=== PATIENT | male | born 1965 | race Caucasian/White ===

== ENCOUNTER 2018-03-27 02:13 | Inpatient (IN) ==
[2018-03-27] MEDS ORDERED: Heparin 10,000 UNITS/10 ML Vial (for IV use) IV.PUSH STA (02:23)
--- NOTE | 2018-03-27 02:23 | ED ---
HPI General Chief complaint: STEMI Alert Stated complaint: Cardiac complaint Time Seen by Provider: 03/27/18 02:21 Source: patient Mode of arrival: ambulatory Limitations: no limitations History of Present Illness HPI narrative: 52yo with PMH of HTN presents to the ED with c/o left sided chest pain during sexual intercourse 2 hours ago. Pain is sharp, constant and associated with nausea, sob and diaphoresis. Pt took 2 aspirin today. Used to see Dr. Real but has not had a compliance spec in years. Related Data Allergies Allergy/AdvReac Type Severity Reaction Status Date / Time hydrocodone Allergy Severe Agitation Verified 03/27/18 02:23 codeine Allergy Agitation Verified 03/27/18 02:23 Review of Systems ROS: all other systems reviewed are negative [facility] Medical History Medical History Afib (Acute) Atrial fibrillation with RVR (Acute) History of cardioversion (Acute) Hyperlipidemia (Acute) Hypertension (Acute) Surgical History Surgical History History of appendectomy (Acute) Hx of tonsillectomy (Acute) Family History Family History Other Family history of diabetes mellitus Family history of hypertension Social History Social History Substance History: No History of Abuse Second Hand Smoke Exposure: Yes Smoking Status: Never smoker How Often Do You Have a Drink Containing Alcohol: Monthly or less Hx Recent Travel: No Recent Travel in [facility] within the Last 8 Weeks: No Recent Out of Country Travel within the Last 8 Weeks: No Exam Narrative Exam Narrative: GENERAL: 52yo M in distress. SKIN: Diaphoretic. HEAD: Atraumatic. Normocephalic. EYES: Pupils equal and round. No scleral icterus. No injection or drainage. ENT: No nasal bleeding or discharge. Mucous membranes pink and moist. NECK: Trachea midline. No JVD. CARDIOVASCULAR: Regular rate and rhythm. No murmur appreciated. RESPIRATORY: No accessory muscle use. Clear to auscultation. Breath sounds equal bilaterally. GASTROINTESTINAL: Abdomen soft, non-tender, nondistended. MUSCULOSKELETAL: No obvious deformities. No clubbing. No cyanosis. No edema. NEUROLOGICAL: Awake and alert. No obvious cranial nerve deficits. Motor grossly within normal limits. Normal speech. PSYCHIATRIC: Appropriate mood and affect; insight and judgment normal. Course Initial Documented Vital Signs Temperature 97.6 F 03/27/18 02:15 Pulse Rate 63 03/27/18 02:15 Respiratory Rate 18 03/27/18 02:15 Blood Pressure 161/91 H 03/27/18 02:15 Pulse Oximetry 100 03/27/18 02:15 Last Documented Vital Signs Temperature 98.3 F 03/27/18 23:00 Pulse Rate 71 03/27/18 23:00 Respiratory Rate 22 03/28/18 00:00 Blood Pressure 119/89 03/27/18 23:00 Pulse Oximetry 96 03/27/18 23:00 Critical Care Time Critical Care Time: Yes Total Critical Care Time: 35 Attestation: Aggregate critical care time was 35 minutes. Time to perform other separately billable procedures was not included in the critical care time. My time did not include minutes spent treating any other patients simultaneously or on activities that did not directly contribute to the patient's treatment. The services I provided to this patient were to treat and/or prevent clinically significant deterioration that could result in: cardiovascular collapse or . I provided critical care services requiring my management, as noted below: Chart data review, documentation time, medication orders and management, vital sign assessments/reviewing monitor data, ordering and reviewing lab tests, ordering and interpreting/reviewing x-rays and diagnostic studies, care of the patient and discussion of the patient with the admitting physicians. Medical Decision Making MDM Narrative Medical decision making narrative: 52yo M with STEMI and STEMI alert was activated immediately. I discussed case with compliance spec Dr. Ash and he is on his way in. Pt given another 162mg of aspirin and heparin bolus. Pt said he is allergic to hydrocodone and codeine but can take dilaudid so given 1mg of dilaudid. I-stat showed mild elevated of creatinine at 1.9. Pt transferred to cardiac labels molder for emergent cardiac catheterization. Medical Screen Exam Complete: Yes Emergency Medical Condition: Yes Differential Diagnosis Differential Diagnosis: ACS Lab Data Result diagrams: 03/27/18 02:25 03/27/18 21:30 Lab Results 03/27/18 03/27/18 03/27/18 Range/Units 02:22 02:25 02:25 WBC 20.4 H (4.0-11.0) th/mm3 RBC 5.48 (4.50-5.90) mil/mm3 Hgb 16.4 (13.0-17.0) gm/dL POC Hgb (Calc) (13.0-17.0) g/dL Hct 49.0 (39.0-51.0) % POC Hct (39-51.0) % MCV 89.3 (80.0-100.0) fL MCH 30.0 (27.0-34.0) pg MCHC 33.6 (32.0-36.0) % RDW 14.2 (11.6-17.2) % Plt Count 312 (150-450) th/mm3 MPV 8.6 (7.0-11.0) fL Prelim Diff (Auto) Slide review pending Neut % (Auto) 73.1 H (16.0-70.0) % Lymph % (Auto) 19.0 (9.0-44.0) % Linn % (Auto) 5.5 (0.0-8.0) % Eos % (Auto) 1.7 (0.0-4.0) % Baso % (Auto) 0.7 (0.0-2.0) % Neut # (Auto) 14.9 H (1.8-7.7) th/mm3 Lymph # (Auto) 3.9 (1.0-4.8) th/mm3 Linn # (Auto) 1.1 H (0.0-0.9) th/mm3 Eos # (Auto) 0.3 (0.0-0.4) th/mm3 Baso # (Auto) 0.1 (0.0-0.2) th/mm3 WBC Differential Manual diff final Seg Neuts % (Manual) 73 H (16-70) % Band Neuts % (Manual) 2 (0-6) % Lymphocytes % (Manual) 16 (9-44) % Monocytes % (Manual) 6 (0-8) % Basophils % (Manual) 1 (0-2) % Myelocytes % (Man) 2 H (0-0) % Abs Neuts (Manual) 15.7 H (1.8-7.7) th/mm3 Differential Comment . Platelet Estimate Normal (Normal) Platelet Morphology Normal (Normal) RBC Morphology Normal (Normal) PT 10.5 (9.8-11.6) sec INR 1.0 Ratio APTT 21.3 L (24.3-30.1) sec POC Sodium (137-144) mmol/L Sodium (136-145) meq/L POC Potassium (3.6-5.0) mmol/L Potassium (3.5-5.1) meq/L POC Chloride (102-111) mmol/L Chloride (98-107) meq/L Carbon Dioxide (21.0-32.0) meq/L Anion Gap (5-15) meq/L POC BUN (5-21) mg/dL BUN (7-18) mg/dL Creatinine (0.60-1.30) mg/dL POC Creatinine (0.6-1.3) mg/dL Estimated GFR (>89) mL/min POC Glucose 220 H (68-110) mg/dl Random Glucose (74-106) mg/dL Hemoglobin A1c (4.3-6.0) % Calcium (8.5-10.1) mg/dL Magnesium (1.5-2.5) mg/dL Total Creatine Kinase (39-308) U/L CK-MB (CK-2) (0.5-3.6) ng/mL CK-MB (CK-2) % (0.0-4.0) % Troponin I (0.02-0.05) ng/mL B-Natriuretic Peptide (0-100) pg/mL TSH (0.358-3.740) uIU/mL Free T4 (0.76-1.46) ng/dL 03/27/18 03/27/18 03/27/18 Range/Units 02:25 02:25 02:25 WBC (4.0-11.0) th/mm3 RBC (4.50-5.90) mil/mm3 Hgb (13.0-17.0) gm/dL POC Hgb (Calc) 16.7 (13.0-17.0) g/dL Hct (39.0-51.0) % POC Hct 49.0 (39-51.0) % MCV (80.0-100.0) fL MCH (27.0-34.0) pg MCHC (32.0-36.0) % RDW (11.6-17.2) % Plt Count (150-450) th/mm3 MPV (7.0-11.0) fL Prelim Diff (Auto) Neut % (Auto) (16.0-70.0) % Lymph % (Auto) (9.0-44.0) % Linn % (Auto) (0.0-8.0) % Eos % (Auto) (0.0-4.0) % Baso % (Auto) (0.0-2.0) % Neut # (Auto) (1.8-7.7) th/mm3 Lymph # (Auto) (1.0-4.8) th/mm3 Linn # (Auto) (0.0-0.9) th/mm3 Eos # (Auto) (0.0-0.4) th/mm3 Baso # (Auto) (0.0-0.2) th/mm3 WBC Differential Seg Neuts % (Manual) (16-70) % Band Neuts % (Manual) (0-6) % Lymphocytes % (Manual) (9-44) % Monocytes % (Manual) (0-8) % Basophils % (Manual) (0-2) % Myelocytes % (Man) (0-0) % Abs Neuts (Manual) (1.8-7.7) th/mm3 Differential Comment Platelet Estimate (Normal) Platelet Morphology (Normal) RBC Morphology (Normal) PT (9.8-11.6) sec INR Ratio APTT (24.3-30.1) sec POC Sodium 141 (137-144) mmol/L Sodium (136-145) meq/L POC Potassium 3.2 L (3.6-5.0) mmol/L Potassium (3.5-5.1) meq/L POC Chloride 103 (102-111) mmol/L Chloride (98-107) meq/L Carbon Dioxide (21.0-32.0) meq/L Anion Gap (5-15) meq/L POC BUN 24 H (5-21) mg/dL BUN (7-18) mg/dL Creatinine (0.60-1.30) mg/dL POC Creatinine 1.9 H (0.6-1.3) mg/dL Estimated GFR (>89) mL/min POC Glucose 256 H (68-110) mg/dl Random Glucose (74-106) mg/dL Hemoglobin A1c (4.3-6.0) % Calcium 8.4 L (8.5-10.1) mg/dL Magnesium 2.1 (1.5-2.5) mg/dL Total Creatine Kinase 151 (39-308) U/L CK-MB (CK-2) 2.6 (0.5-3.6) ng/mL CK-MB (CK-2) % (0.0-4.0) % Troponin I 0.05 (0.02-0.05) ng/mL B-Natriuretic Peptide 52 (0-100) pg/mL TSH (0.358-3.740) uIU/mL Free T4 (0.76-1.46) ng/dL 03/27/18 03/27/18 03/27/18 Range/Units 02:25 02:25 02:25 WBC (4.0-11.0) th/mm3 RBC (4.50-5.90) mil/mm3 Hgb (13.0-17.0) gm/dL POC Hgb (Calc) (13.0-17.0) g/dL Hct (39.0-51.0) % POC Hct (39-51.0) % MCV (80.0-100.0) fL MCH (27.0-34.0) pg MCHC (32.0-36.0) % RDW (11.6-17.2) % Plt Count (150-450) th/mm3 MPV (7.0-11.0) fL Prelim Diff (Auto) Neut % (Auto) (16.0-70.0) % Lymph % (Auto) (9.0-44.0) % Linn % (Auto) (0.0-8.0) % Eos % (Auto) (0.0-4.0) % Baso % (Auto) (0.0-2.0) % Neut # (Auto) (1.8-7.7) th/mm3 Lymph # (Auto) (1.0-4.8) th/mm3 Linn # (Auto) (0.0-0.9) th/mm3 Eos # (Auto) (0.0-0.4) th/mm3 Baso # (Auto) (0.0-0.2) th/mm3 WBC Differential Seg Neuts % (Manual) (16-70) % Band Neuts % (Manual) (0-6) % Lymphocytes % (Manual) (9-44) % Monocytes % (Manual) (0-8) % Basophils % (Manual) (0-2) % Myelocytes % (Man) (0-0) % Abs Neuts (Manual) (1.8-7.7) th/mm3 Differential Comment Platelet Estimate (Normal) Platelet Morphology (Normal) RBC Morphology (Normal) PT (9.8-11.6) sec INR Ratio APTT (24.3-30.1) sec POC Sodium (137-144) mmol/L Sodium (136-145) meq/L POC Potassium (3.6-5.0) mmol/L Potassium (3.5-5.1) meq/L POC Chloride (102-111) mmol/L Chloride (98-107) meq/L Carbon Dioxide (21.0-32.0) meq/L Anion Gap (5-15) meq/L POC BUN (5-21) mg/dL BUN (7-18) mg/dL Creatinine (0.60-1.30) mg/dL POC Creatinine (0.6-1.3) mg/dL Estimated GFR (>89) mL/min POC Glucose (68-110) mg/dl Random Glucose (74-106) mg/dL Hemoglobin A1c 5.4 (4.3-6.0) % Calcium (8.5-10.1) mg/dL Magnesium (1.5-2.5) mg/dL Total Creatine Kinase (39-308) U/L CK-MB (CK-2) (0.5-3.6) ng/mL CK-MB (CK-2) % (0.0-4.0) % Troponin I (0.02-0.05) ng/mL B-Natriuretic Peptide (0-100) pg/mL TSH 12.000 H (0.358-3.740) uIU/mL Free T4 1.07 (0.76-1.46) ng/dL 03/27/18 03/27/18 03/27/18 Range/Units 19:11 21:30 21:30 WBC (4.0-11.0) th/mm3 RBC (4.50-5.90) mil/mm3 Hgb (13.0-17.0) gm/dL POC Hgb (Calc) (13.0-17.0) g/dL Hct (39.0-51.0) % POC Hct (39-51.0) % MCV (80.0-100.0) fL MCH (27.0-34.0) pg MCHC (32.0-36.0) % RDW (11.6-17.2) % Plt Count (150-450) th/mm3 MPV (7.0-11.0) fL Prelim Diff (Auto) Neut % (Auto) (16.0-70.0) % Lymph % (Auto) (9.0-44.0) % Linn % (Auto) (0.0-8.0) % Eos % (Auto) (0.0-4.0) % Baso % (Auto) (0.0-2.0) % Neut # (Auto) (1.8-7.7) th/mm3 Lymph # (Auto) (1.0-4.8) th/mm3 Linn # (Auto) (0.0-0.9) th/mm3 Eos # (Auto) (0.0-0.4) th/mm3 Baso # (Auto) (0.0-0.2) th/mm3 WBC Differential Seg Neuts % (Manual) (16-70) % Band Neuts % (Manual) (0-6) % Lymphocytes % (Manual) (9-44) % Monocytes % (Manual) (0-8) % Basophils % (Manual) (0-2) % Myelocytes % (Man) (0-0) % Abs Neuts (Manual) (1.8-7.7) th/mm3 Differential Comment Platelet Estimate (Normal) Platelet Morphology (Normal) RBC Morphology (Normal) PT (9.8-11.6) sec INR Ratio APTT (24.3-30.1) sec POC Sodium (137-144) mmol/L Sodium 141 (136-145) meq/L POC Potassium (3.6-5.0) mmol/L Potassium 4.3 (3.5-5.1) meq/L POC Chloride (102-111) mmol/L Chloride 107 (98-107) meq/L Carbon Dioxide 22.4 (21.0-32.0) meq/L Anion Gap 12 (5-15) meq/L POC BUN (5-21) mg/dL BUN 15 (7-18) mg/dL Creatinine 0.97 (0.60-1.30) mg/dL POC Creatinine (0.6-1.3) mg/dL Estimated GFR 82 L (>89) mL/min POC Glucose (68-110) mg/dl Random Glucose 115 H (74-106) mg/dL Hemoglobin A1c (4.3-6.0) % Calcium 8.1 L (8.5-10.1) mg/dL Magnesium 2.5 (1.5-2.5) mg/dL Total Creatine Kinase 1716 H (39-308) U/L CK-MB (CK-2) 198.2 H (0.5-3.6) ng/mL CK-MB (CK-2) % 11.6 H* (0.0-4.0) % Troponin I Greater than 40.00 H* (0.02-0.05) ng/mL B-Natriuretic Peptide (0-100) pg/mL TSH (0.358-3.740) uIU/mL Free T4 (0.76-1.46) ng/dL Imaging Data Radiologist's impression: Chest X-Ray 03/27/18 02:23 CONCLUSION: No acute cardiopulmonary abnormality is identified. ECG Data EKG Prior to Arrival: No Attestation: I personally reviewed and interpreted this ECG as follows: Interpretation: Marked ST elevation in II, III, aVF and V2-V6. Reciprocal changes I, aVL. STEMI alert called immediately. Discharge Plan Discharge Disposition Patient Disposition: 30 Still Patient Discharge Details Diagnosis: ST elevation (STEMI) myocardial infarction Physicians Team ED Provider: Alina Beard Primary Care Provider: Pro Canas Attending Provider: Anuj Cason Discharge Interventions Interventions: ED Discharge Assessment Last Done: 03/27/18 03:22 Vital Signs Last Done: 03/27/18 02:43 Status ED Status: Left Department Discharge Information Discharge Date/Time: 03/27/18 03:22
[2018-03-27] MEDS ORDERED: HYDROmorphone PF Inj 0.5 MG/0.5 ML Syringe IV.PUSH PRN (02:26)
[2018-03-27] MEDS ORDERED: Sod Chloride 0.9% Inj 1,000 ML IV.SIG SCH (02:30)
[2018-03-27 02:34] LABS: Baso # (Auto) 0.1 th/mm3 (0.0-0.2); Baso % (Auto) 0.7 % (0.0-2.0); Eos # (Auto) 0.3 th/mm3 (0.0-0.4); Eos % (Auto) 1.7 % (0.0-4.0); Hemoglobin 16.4 gm/dL (13.0-17.0); Lymph # (Auto) 3.9 th/mm3 (1.0-4.8); Mean Corpuscular HGB Conc 33.6 % (32.0-36.0); Mean Corpuscular Volume 89.3 fL (80.0-100.0); Mean Platelet Volume 8.6 fL (7.0-11.0); Mono # (Auto) 1.1 th/mm3 (0.0-0.9); Mono % (Auto) 5.5 % (0.0-8.0); Neut # (Auto) 14.9 th/mm3 (1.8-7.7); Neut % (Auto) 73.1 % (16.0-70.0); Platelet Count 312 th/mm3 (150-450); Red Blood Count 5.48 mil/mm3 (4.50-5.90); Red Cell Distribution Width 14.2 % (11.6-17.2); White Blood Count 20.4 th/mm3 (4.0-11.0)
[2018-03-27] MEDS ORDERED: HYDROmorphone PF Inj 2 MG/ML Vial IV.PUSH ONE (02:39)
[2018-03-27 02:45] LABS: Activated Partial Thrombo Time 21.3 sec (24.3-30.1); Prothrombin Time 10.5 sec (9.8-11.6)
--- NOTE | 2018-03-27 02:49 | XR ---
EXAM DATE: 03/27/2018 2:40 AM EDT AGE/SEX: 52 years / Male INDICATIONS: Chest pain. CLINICAL DATA: This is the patient's initial encounter. Patient reports that signs and symptoms have been present for 1 day and indicates a pain score of Nonresponsive. MEDICAL/SURGICAL HISTORY: Non-responsive. Non-responsive. COMPARISON: No prior exams available for comparison. FINDINGS: Portable AP view of the chest demonstrates a normal-sized cardiac silhouette. No effusion, consolidat ion, or pneumothorax is identified. The bones and soft tissues demonstrate no acute finding. EKG line s overlie the patient. CONCLUSION: No acute cardiopulmonary abnormality is identified. Electronically signed by: Luigi Cloud MD 03/27/2018 2:47 AM EDT
[2018-03-27] MEDS ORDERED: Heparin/NS PF Inj 1,000 ML ONE (02:54)
[2018-03-27 03:02] LABS: Creatine Kinase 151 U/L (39-308); Troponin I 0.05 ng/mL (0.02-0.05)
[2018-03-27 03:08] LABS: Lymphocytes 16 % (9-44); Monocytes 6 % (0-8); Myelocytes 2 % (0-0); Platelet Estimate Normal (Normal); Platelet Morphology Normal (Normal); RBC Morphology Normal (Normal)
[2018-03-27] MEDS ORDERED: fentaNYL Citrate Inj 100 MCG/2 ML Ampul ONE (03:10)
[2018-03-27 03:13] LABS: Calcium 8.4 mg/dL (8.5-10.1); Magnesium 2.1 mg/dL (1.5-2.5)
[2018-03-27 03:14] LABS: Creatine Kinase MB 2.6 ng/mL (0.5-3.6)
[2018-03-27] MEDS ORDERED: Atropine Inj 1 MG/10 ML Syringe ONE (03:15)
[2018-03-27] MEDS ORDERED: Heparin 10,000 UNITS/10 ML Vial (for IV use) ONE (03:18)
[2018-03-27] MEDS ORDERED: Tirofiban Inj 12,500 MCG/250 ML PLAST..BAG ONE (03:20)
[2018-03-27] MEDS: Tirofiban Inj 12,500 MCG/250 ML PLAST..BAG IV.CONT SCH ×2 (03:30→14:46)
[2018-03-27] MEDS ORDERED: Misc Info for Pharmacy OTHER STA (03:43)
[2018-03-27] MEDS ORDERED: TIROFIBAN BOLUS IV.PUSH ONE (03:43)
--- NOTE | 2018-03-27 03:57 | CATHPROC ---
[facility] HIS Report Study Information Study Number Admission Scheduled Start Study Start [id number] Mar 27 2018 2:13AM 03/27/2018 Mar 27 2018 2:51AM [place] [facility] Cardiac Catheterization Admit Source Facility Department Emergency department [facility] - [facility] Physician and Clinical Staff Initial Nci Bobby NeuropathologistFeng Gilmore,MARCE Neuropathologist Urvashi Ramey,MARCE Recorder Connie Lott,TRANSLATOR/INTERPRETER TECH2 Scrub Axel Riddle RCIS(BS) Procedures Performed Procedure Location (Site) Vessel Name Coronary Angiograms LCA Left Coronary Coronary Angiograms RCA Right Coronary Drug Eluting Inflatio RCA Prox Right Coronary LV Gram-hand inj. LV LV Ventricle Wire insertion Fem Art (right) Femoral Art Equipment Time Heel Compressor Description Size Mfg Part Number Used/Scraped [id number] 03:17 [employer] WIRE, ASAHI PROWATER 180CM 180CM Used *[id number] TRANSDUCER, TRUWAVE [id number] 03:05 MACDONALD YANEZ * Used [facility] *[id number] [id number] *[id number] *[id number] *[id number] 03:04 INAPPIN BLANKET,WARM AIR CCL * Used *[id number] 03:05 INAPPIN PACK, CCL CUSTOM * Used *[id number] 03:16 MEDTRONIC BALLOON, 2.5 X 12MM EUPHORA 12MM Used *[id number] 03:17 MEDTRONIC STENT, 3.5 15 INTEGRITY 3.5 15 Used *[id number] 03:19 [employer] MEDICAL 30 CRIS INDEFLATOR Used *[id number] 03:13 [employer] MEDICAL SHEATH, FR6.5 PRELUDE 11CM FR 6.5 038ACT Used *[id number] 03:05 [employer] MEDICAL WIRE, 3MMJ .035 180CM 180CM Used *[id number] 03:05 NAMIC MANIFOLD, 4 PORT * Used *[id number] 03:04 NYCOMED OMNIPAQUE, 350 MG, 150ML 150ML [id number] Used 03:05 NYCOMED OMNIPAQUE, 350 MG, 150ML 150ML [id number] Used Equipment Model, Serial, Lot Number and Expiration Data Description Model Number Serial Number Lot Number Expiration Date STENT, 3.5 15 INTEGRITY [id number] 01-29-2019 History: Current Medications Medication Dosage/Unit Route Frequency Last Date/Time Taken ASA History: Allergies Allergy Reaction codeine Agitation hydrocodone Agitation History: Risk Factors Family History of Hypertension Dyslipidemia Previous [place] Previous Heart Failure Premature CAD Yes No No No No Prior Valve Prior PCI Prior CABG Surgery No No No Cerebrovascular Peripheral Artery Chronic Lung On Dialysis Diabetes Disease Disease Disease No No No No No History: Arrhythmias Selection Items Atrial fibrillation Labs Hgb (g/dl) Hct (%) WBC (l/cumm) Platelets (thousands) 11.60-17.00 35.00-51.00 4.00-11.00 150.00-450.00 16.4 49 20.4 312 BUN (mg/dl) Creatinine (mg/dl) BUN:Creatinine (1:x) 7.00-18.00 0.50-1.30 10.00-20.00 24 1.9 12.6 Na (meq/l) K (meq/l) 136.00-145.00 3.50-5.10 141 3.2 Medication Medication Total Dose (Bolus/Oral) Medication Total Dosage/Unit 1% XYLOCAINE 20 mL AGGRASTAT BOLUS 25 meq/kg ATROPINE 0.6 mg EFFIENT 60 mg FENTANYL 100 mcg HEPARIN 5000 units ZOFRAN 4 mg Medications (Bolus/Oral) Medication Time Given Dosage/Unit Administered By Reason FENTANYL 03/27/2018 3:11:41 AM 50 mcg Feng Frias 50 mcg FENTANYL given in lab by Feng Frias RN via Peripheral IV. Ordered by Nic Ash. 1% XYLOCAINE 03/27/2018 3:11:42 AM 20 mL Nic Ash 20 mL 1% XYLOCAINE given in lab by Nic Ash in Right Groin via Subcutaneous. Ordered by iNc Clay. ATROPINE 03/27/2018 3:12:10 AM 0.6 mg Feng Frias 0.6 mg ATROPINE given in lab by Feng Frias, MARCE in Right Antecubital via Peripheral IV. Ordered by Nic Ash. HEPARIN 03/27/2018 3:19:05 AM 5000 units Feng Frias 5000 units HEPARIN given in lab by Feng Frias RN in Right Antecubital via Peripheral IV. Ordered by Nic Ash. ZOFRAN 03/27/2018 3:21:33 AM 4 mg Urvashi Ramey 4 mg ZOFRAN given in lab by Urvashi Ramey RN in Right Antecubital via Peripheral IV. Ordered by Nic Lisa. AGGRASTAT BOLUS 03/27/2018 3:27:20 AM 25 meq/kg Nic Ahs 25 meq/kg AGGRASTAT BOLUS given in lab by Nic Ash via Peripheral IV. Amount given = 2210 meq . Ordered by Nic Ash. FENTANYL 03/27/2018 3:28:37 AM 50 mcg Urvashi Ramey 50 mcg FENTANYL given in lab by Urvashi Ramey RN in Right Antecubital via Peripheral IV. Ordered by Nic Ash. EFFIENT 03/27/2018 3:31:04 AM 60 mg Feng Frias 60 mg EFFIENT given in lab by Feng Frias RN via Oral. Ordered by Nic Ash. Medication (Drip) Medication Time Given Dosage/Unit Concentration/Unit Diluent (ml) Solution AGGRASTAT DRIP 03/27/2018 3:29:07 AM 0.15 mcg/kg/min 12.5 mg 250 NaCl .9 0.15 mcg/kg/min AGGRASTAT DRIP given in lab by Urvashi Ramey RN in Right Antecubital via Peripher al IV. Pump/Drip Flow = 15.91 ml/hr using NaCl .9 with a concentration of 12.5 mg in 250 ml. Ordered by Nic Ash. IV Solutions 03/27/2018 3:06:18 AM 0 mL (IV) 1000 NaCl .9 Patient arrived on IV Solutions given by Nic Ash in Right Antecubital via Peripheral IV. Pum p/Drip Flow = 20 ml/hr using NaCl .9. Ordered by Nic Ash. NIPRIDE 03/27/2018 3:25:34 AM 100 mg 100 mg NIPRIDE given in lab by Nic Ash in Right Groin via Intra-coronary. Ordered by Nic Tena. NIPRIDE 03/27/2018 3:26:40 AM 100 mg 100 mg NIPRIDE given in lab by Nic Ash in Right Groin via Intra-coronary. Ordered by Nic Tena. Initial Case Assessment Cardiovascular HR NIBP 71 182/109 Edema Present Skin color Skin None Normal Warm Dry Circulatory - Right Pulses Dorsalis Pedis Femoral 3 3 Scale (0,1,2,3,4,d) Circulatory - Left Pulses Dorsalis Pedis Femoral 3 3 Scale (0,1,2,3,4,d) Neurological State Oriented to time-place- Alert Moves all extremities person Respiration - General Respiration Rate SpO2 (%) O2 (lpm) (B/min) 19 96 2 Initial Case Assessment Cardiovascular HR NIBP Chest Pain 118 137/101 2 Edema Present Skin color Skin None Normal Warm Dry Circulatory - Right Pulses Dorsalis Pedis Femoral 3 3 Scale (0,1,2,3,4,d) Circulatory - Left Pulses Dorsalis Pedis Femoral 3 3 Scale (0,1,2,3,4,d) Neurological State Oriented to time-place- Alert Moves all extremities person Respiration - General Respiration Rate SpO2 (%) (B/min) 15 97 Chronological Log Time Study Chronological Log 2:51:16 Emergency Room notified that Auto [facility]ist is ready. 2:58:20 Patient arrived via Bed. 2:58:21 Patient Name, D.O.B, / Armband Verified By R.N. 2:58:21 Consent signed by the physician and the patient and verified by the [facility] staff. 2:58:22 Pre-op and post- op instructions given; patient acknowledges understanding of instructions. 2:58:25 Patient has been NPO for Less than 6Hrs. 2:58:27 NO Skin Breakdown- 2:58:30 Disposable Defibrillator Pads Placed On Patient. 2:58:31 Qiana Prominences Protected 2:58:32 A # 20 IV was noted in the Antecubital (left). Grade = 0 2:58:33 A # 20 IV was noted in the Antecubital (right). Grade = 0 Vitals capture started with the following parameters, Patient=Adult, Interval=5 min, Initial Pr gsmdcv=171 mmHg, 3:06:12 Deflation Rate=5 mmHg, Cuff placed on Left Arm Patient arrived on IV Solutions given by Nic Ash in Right Antecubital via Peripheral I V. Pump/Drip Flow = 20 3:06:18 ml/hr using NaCl .9. Ordered by Nic Ash. 3:06:56 HR=71 bpm, JORV=355/109 mmhg, SpO2=96.0 %, Resp=19 B/min, Pain=10, Alycia=10, Thorne=2 3:07:21 History and physical on the chart or being dictated. Assessment: Initial Case, HR=71 BPM, XFBI=142/109 mmhg, Edema=None, Color=Normal, Skin = Warm, D ry Right Pulses: [place] Ped=3, Femoral=3 3:07:22 Left Pulses: [place] Ped=3, Femoral=3 Neurological: State=Alert, Ox3, MORAN Respiration: Resp=19 B/min, SpO2=96 %, O2=2 lpm 3:07:37 Reference ECG taken 3:08:17 Bilateral groins prepped with 2% chlorhexidine, and draped after a 3 minute waiting time. 3:10:01 Pressure channel 1 zeroed. Time Out. Correct patient, correct procedure, correct physician, labs, allergies, and equipment verified with laboratory machinist 3:11:37 team present. Fire risk assesment completed (see hard stop sheet for coding). Time Out Concu rred by MD and individual staff in procedure. 3:11:39 Case Start 3:11:41 50 mcg FENTANYL given in lab by Feng Frias, MARCE via Peripheral IV. Ordered by Lavonne Ash. 20 mL 1% XYLOCAINE given in lab by Nic Ash in Right Groin via Subcutaneous. Ordered by Mihir 3:11:42 Nic. 3:12:10 0.6 mg ATROPINE given in lab by Feng Frias, RN in Right Antecubital via Peripheral IV. O rdered by Nic Ash. 3:12:26 HR=81 bpm, KCYK=237/112 mmhg, SpO2=95.0 %, Resp=20 B/min, Pain=10, Alycia=10, Thorne=2 3:12:32 Access site was ~ACCESS SITE~. 3:12:34 A SHEATH, FR6.5 PRELUDE 11CM FR 6.5 was advanced into the Fem Art (right) using the Modified Seldinger technique. 3:13:53 Activated Clotting Time Drawn A JR 4.0 GUIDE CATHETER FR 6 was advanced over a wire. OMNIPAQUE, 350 MG, 150ML 150ML was used f or 3:14:04 injections. 3:15:09 The RCA was injected and visualized at various angles. OMNIPAQUE, 350 MG, 150ML 150ML used. 3:15:53 A WIRE, ASAHI PROWATER 180CM 180CM was inserted via Fem Art (right). 3:15:58 Interventional wire has crossed the lesion 3:16:52 WS=000 bpm, VXWN=869/96 mmhg, SpO2=85.0 %, Resp=20 B/min, Pain=10, Alycia=10, Thorne=2 3:17:36 ACT (Normal Range 90-180) = 197 A STENT, 3.5 15 INTEGRITY 3.5 15 was advanced through a JR 4.0 GUIDE CATHETER FR 6 over a WIRE, ASAHI 3:17:45 PROWATER 180CM 180CM. A STENT, 3.5 15 INTEGRITY 3.5 15 was deployed using a 30 CRIS INDEFLATOR at 11 atmospheres for 11 seconds in 3:18:21 the RCA Prox. 5000 units HEPARIN given in lab by Feng Frias, RN in Right Antecubital via Peripheral IV. Or dered by Mihir, 3:19:05 Nic. 3:19:36 Delivery device removed 3:19:56 Catheter was removed A JL 4.0 INFINITI CATHETER FR 4 was advanced over a wire. OMNIPAQUE, 350 MG, 150ML 150ML was use d for 3:20:28 injections. 3:21:16 The LCA was injected and visualized at various angles. OMNIPAQUE, 350 MG, 150ML 150ML used. 4 mg ZOFRAN given in lab by Urvashi Ramey, RN in Right Antecubital via Peripheral IV. Ordered by Mihir, 3:21:33 Nic. 3:21:47 HR=86 bpm, NKMQ=194/92 mmhg, SpO2=99.0 %, Resp=15 B/min, Pain=10, Alycia=10, Thorne=2 3:22:08 Catheter was removed A JR 4.0 INFINITI CATHETER FR 4 was advanced over a wire. OMNIPAQUE, 350 MG, 150ML 150ML was use d for 3:22:10 injections. 3:22:30 The LV was manually injected with ~CCS~ cc's and visualized. contrast used. Recorded Pressure: LV, HR=84, Condition=Condition 1 3:22:53 (Left Ventricle) LV 115/16/23 Recorded Pressure: LV, Ao, BH=483, Condition=Condition 1 3:23:18 (Left Ventricle) LV 127/13/24, (Aorta) Ao 125/93/108 3:24:22 Catheter was removed A JR 4.0 INFINITI CATHETER FR 4 was advanced over a wire. OMNIPAQUE, 350 MG, 150ML 150ML was use d for 3:24:24 injections. Recorded Pressure: Ao, NZ=184, Condition=Condition 1 3:25:05 (Aorta) Ao 131/92/110 3:25:34 100 mg NIPRIDE given in lab by Nic Ash in Right Groin via Intra-coronary. Ordered b y Nic Ash. 3:25:43 Catheter(s) removed without difficulty 3:26:11 Activated Clotting Time Drawn 3:26:40 100 mg NIPRIDE given in lab by Nic Ash in Right Groin via Intra-coronary. Ordered b y Nic Ash. 3:26:50 ST=163 bpm, PIVK=032/86 mmhg, SpO2=97.0 %, Resp=12 B/min, Pain=10, Alycia=10, Thorne=2 3:26:54 In the Fem Art (right) the sheath was sutured in place by Nic Ash. 3:26:59 Sterile dressing applied to site 3:27:06 Catheter was removed 3:27:10 Cine recording checked. 25 meq/kg AGGRASTAT BOLUS given in lab by Nic Ash via Peripheral IV. Amount given = 221 0 meq. Ordered 3:27:20 by Nic Ash. 3:27:30 No case complications noted. 3:27:55 Case End (Physician broke scrub) PCI QA completed: Pre-Diego - 0, Post Diego - 3, Type - ~TYPE~, Length - 12 mm, Morphology - ~MORP HOLOGY~, 3:28:01 Indications - Lesion > 50/stem, Pre-Stenosis - 100% and Post Stenosis - 0%. 3:28:03 PCI QA obtained from Crm Marketing Manager 50 mcg FENTANYL given in lab by Urvashi Ramey RN in Right Antecubital via Peripheral IV. Ord ered by Mihir, 3:28:37 Nic. 0.15 mcg/kg/min AGGRASTAT DRIP given in lab by Urvashi Ramey, MARCE in Right Antecubital via Per ipheral IV. 3:29:07 Pump/Drip Flow = 15.91 ml/hr using NaCl .9 with a concentration of 12.5 mg in 250 ml. Ordered by Arthur. Mihir 3:31:04 60 mg EFFIENT given in lab by Feng Frias, MARCE via Oral. Ordered by Nic Ash. 3:31:30 ACT (Normal Range 90-180) = 273 3:31:47 PX=418 bpm, LCBV=453/91 mmhg, SpO2=97.0 %, Resp=12 B/min, Pain=4, Alycia=10, Thorne=2 3:37:19 SS=759 bpm, GMWW=848/89 mmhg, ImA3=543.0 %, Resp=13 B/min, Pain=10, Alycia=10, Thorne=2 3:41:51 DA=575 bpm, OOAQ=263/96 mmhg, SpO2=99.0 %, Resp=15 B/min, Pain=10, Alycia=10, Thorne=2 3:46:48 RI=088 bpm, UCRM=744/101 mmhg, SpO2=97.0 %, Resp=15 B/min, Pain=10, Alycia=10, Thorne=2 3:48:25 Bedside Report will be given. 3:48:27 Implantable Device card placed in patient's chart. 3:48:30 [facility] 3:48:34 Vitals capture stopped. Assessment: Initial Case, BP=144 BPM, UTUP=381/101 mmhg, Chest Pain=2, Edema=None, Color=Normal, Skin = Warm, Dry Right Pulses: [place] Ped=3, Femoral=3 3:56:07 Left Pulses: [place] Ped=3, Femoral=3 Neurological: State=Alert, Ox3, MORAN Respiration: Resp=15 B/min, SpO2=97 % End Study - Contrast Media Used In Study Contrast Total Opened (mL) Total Used (mL) Total Wasted (mL) Omnipaque 75 75 0 End Study - Maximum Contrast Load Max Contrast Load (mL) 232.7 End Study - Radiation Exposure Fluoro Time (minutes) 3.3 End Study - Patient Disposition Complications Transferred To Interventional Outcome No Critical Care Bed successful
[2018-03-27] MEDS ORDERED: fentaNYL Citrate Inj 100 MCG/2 ML Ampul IV.PUSH ONE (04:15)
--- NOTE | 2018-03-27 04:55 | MR ---
cc: Nic Ash MD DATE: 03/27/2018 PROCEDURES PERFORMED: Left heart catheterization, left ventriculography, coronary angiography, direct percutaneous coronary intervention with bare-metal stent of the proximal right coronary artery. INDICATIONS FOR PROCEDURE: STEMI, coronary artery disease, history of atrial fibrillation. PROCEDURE IN DETAIL: The patient was brought to the cardiac catheterization laboratory, prepped and draped in the usual sterile fashion and 10 mL of 1% lidocaine was used to locally anesthetize the right common femoral artery. A 6-Micronesian sheath was placed in right common femoral artery. A 6-Micronesian JR4 guide was placed at the right coronary artery os. Imaging revealed an occluded proximal right coronary artery. The patient's initial ACT was 198 and additional 60 units/kg of heparin was given at the initiation of the procedure. ACT was 273. A 0.014 [place] guidewire was used to cross the occluded proximal right coronary artery, which resulted in reperfusion with a 95% stenosis residual of about 12 mm of length in the proximal right coronary artery. This was directly stented with a 3.5 x 15 integrity stent with one inflation, 11 atmospheres for 20 seconds. Stenosis went from 100% to 0% with PAPITO-3 flow. The right PDA had a 90% proximal stenosis. Right REMEDIOS had a 70% proximal stenosis. The vessel was of 3.5 vessel throughout its entire length. Also in the right coronary artery there was a 20% stenosis. The left main coronary artery has no significant disease angiographically. The LAD had mild 20% proximal stenosis. It is a non-transapical vessel. There is a 40%-50% stenosis after the first diagonal artery. The first diagonal artery is a medium-sized vessel, to at least 2.5 mm in diameter, with a mid to distal 60%-70% stenosis. The left circumflex vessel has no focal stenosis; however, it tapers from an approximately 2.75 mm vessel in the proximal segment down to about a 1.75-2 mm vessel within a distance of approximately 15 mm. The first obtuse marginal vessel was a 0.5 mm vessel. No significant disease angiographically. Second obtuse marginal vessel is a small vessel as well, 1 mm in diameter. No significant disease angiographically. The remainder of the AV groove of the left circumflex vessels supplies 2 small 0.25 mm posterolateral arteries, which have no significant disease angiographically. I then performed a left ventriculogram. LV pressures were 115/20-22. Ejection fraction was 55%. The posterior wall was at least moderately hypokinetic, but did have wall motion suggesting viability. Mid inferior wall is at least mild to moderately hypokinetic. Note, the patient had residual chest pain. We gave 200 mcg of intracoronary Nipride in 100 mcg increments. Chest pain at the end of procedure went from 10/10 to 2/10. CONCLUSION: 1. ST elevation myocardial infarction, culprit occluded proximal right coronary artery as detailed above. 2. Successful direct percutaneous coronary intervention with bare-metal stent of the proximal right coronary artery from 100% with PAPITO 0 flow to 0% with PAPITO 3 flow. 3. A 90%-95% proximal mid right PDA lesion. 4. A 70% proximal mid right REMEDIOS lesion as detailed above. 5. A 60-70% mid diagonal vessel stenosis as detailed above. Otherwise, moderate left anterior descending artery and circumflex disease as detailed above. 6. Preserved left ventricular systolic, ejection fraction of 55% with at least moderate hypokinesis of the posterior wall and mild to moderate hypokinesis of the mid inferior wall. 7. Recommend Effient 60 mg p.o. load then 10 mg daily for 12-15 months, aspirin 162 mg daily. The patient was bradycardic prior to the procedure. He did respond well to 0.6 of atropine, but will hold beta kyle over the next 24 hours to determine the trend in heart rate. FLACO inhibitor will be held for the first 24 hours given relatively low systolic blood pressure. Post procedure, it was around 100. We will treat lipids per NCBI guidelines. MD ROMULO Colón/yaima , 03:38 AM , 03:47 AM
--- NOTE | 2018-03-27 05:10 | MB ---
cc: Nic Ash MD DATE: 03/27/2018 HISTORY OF PRESENT ILLNESS: Jorge is a very pleasant 52-year-old gentleman with history of atrial fibrillation, who developed chest pain 05/02 at approximately 11:30 p.m. on 03/26/2018. He was found to have extensive inferolateral injury pattern on EKG in the ER. STEMI alert was called. He otherwise denies any fevers, chills, cough, GI or bleeding, PND, orthopnea, syncope or dizziness. PAST MEDICAL HISTORY: Per history of present illness. Past medical history also includes hypertension and atrial fibrillation. ALLERGIES: HYDROCODONE AND CODEINE. SOCIAL HISTORY: Denies tobacco use. Denies alcohol use. MEDICATIONS GIVEN IN THE EMERGENCY ROOM: Aspirin and heparin bolus and drip. PHYSICAL EXAMINATION: VITAL SIGNS: Blood pressure 143/72, pulse 72, respiration rate 18, sats 100% on 2 liters nasal cannula, temperature 97.6. GENERAL: He is alert and oriented x3, in moderate to severe distress. NECK: Supple. No JVD. No bruit. CARDIOVASCULAR: S1, S2. No murmurs, rubs or gallops. LUNGS: Coarse bilaterally. ABDOMEN: Soft, nontender, nondistended with positive bowel sounds. EXTREMITIES: Lower extremity edema. LABORATORY DATA: White count 20.4, hemoglobin 16.4, hematocrit 49.0, platelet count 312. INR is 1.0. Sodium 141, potassium 3.2, chloride 103, bicarbonate 24, creatinine is 1.9, magnesium 2.1. Troponin is 0.05. BNP is 52. Chest x-ray shows "no acute cardiopulmonary abnormalities identified." His EKG shows atrial fibrillation with 3-[address] segment elevation in leads II, III, aVF, V3, V4, V5, V6 with reciprocal changes consistent with posterior injury pattern on V1 and V2, ST depression of 2-3 mm in lead I and aVL. DIAGNOSES: 1. ST elevation myocardial infarction. 2. Atrial fibrillation. 3. Hypertension. PLAN: I have discussed the case with the ER physician. A STEMI alert has been called. The patient has been given aspirin and heparin. The plan is for a primary PCI. MD ROMULO Colón/yaima , 03:54 AM , 04:00 AM
--- NOTE | 2018-03-27 07:55 | ECG ---
Date Performed: 03/27/2018 Time Performed: 02:13:24 PTAGE: 52 years EKG: ATRIAL FIBRILLATION WITH SLOW VENTRICULAR RESPONSE LOW QRS VOLTAGE IN PRECORDIAL LEADS RAZA ED ST ELEVATION, CONSIDER INFERIOR INJURY MARKED ST ELEVATION, CONSIDER ANTEROLATERAL INJURY ACUTE MT NO PREVIOUS TRACING DOCTOR: Donavon Reina Interpretating Date/Time 03/27/2018 07:54:09
[2018-03-27] MEDS ORDERED: Naloxone Inj 0.4 MG/ML Vial IV.PUSH PRN (09:44)
[2018-03-27] MEDS ORDERED: Morphine Inj 4 MG/ML Vial IV.PUSH PRN (09:44)
[2018-03-27] MEDS ORDERED: Acetaminophen 325 MG Tablet PO PRN (09:44)
--- NOTE | 2018-03-27 10:27 | P.HPIM ---
History of Present Illness Service: [facility] Primary Care Physician: RANDI QUINTANILLA MD Chief Complaint: CHEST PAIN History of Present Illness: PATIENT IS A 52 YEAR OLD GENTLEMAN WHO PRESENTED TO THE EMERGENCY DEPARTMENT HERE AT [facility] FOR CHEST PAIN THAT OCCURRED DURING SEXUAL RELATIONSHIPS. PATIENT WAS NOTED TO HAVE AN STEMI AND WAS TAKE EMERGENTLY TO THE [facility] BY DR DEJESUS AND UNDERWENT STENT PLACEMENT TO RIGHT CORONARY ARTERY HAS BEEN PLACED ON EFFIENT AND ASPIRIN 325MG WILL ADD STATIN LIPITOR 40MG PO QHS METOPROLOL 25MG PO BID AT HOME NORMALLY TAKES ASA 81MG AND NORVASC 5MG DAILY POSITIVE FAMILY HX OF HEART DISEASE AND DIABETES Inpatient Certification: I certify that the inpatient services were ordered in accordance with Medicare regulations governing the order. This includes certification that hospital inpatient services are reasonable and necessary and in the case of services not specified as inpatient-only under 42 CFR 419.22(n), that they are appropriately provided as inpatient services in accordance to with the 2-midnight benchmark under 43 CFR 412.3(e) Estimated Total Length of Stay (Days): 2 Plans for Post Hospital Care: Home Review of Systems All other systems reviewed negative except as stated in HPI Gastrointestinal: Reports abdominal pain, Reports nausea PMFSH - History History Provided By: Patient - Medical History Medical History: Medical History (Last Updated 03/27/18 @ 10:23 by Anuj Cason DO) Afib Atrial fibrillation with RVR History of cardioversion Hyperlipidemia Hypertension - Surgical History Surgical History: Surgical History (Last Updated 03/27/18 @ 10:23 by Anuj Cason DO) History of appendectomy Hx of tonsillectomy - Family History Family History: Family History (Last Updated 03/27/18 @ 10:23 by Anuj Cason DO) Other Family history of diabetes mellitus Family history of hypertension - Tobacco History Second Hand Smoke Exposure: No Tobacco Use In Past 30 Days: No Smoking Status: Never smoker - Alcohol History How Often Do You Have a Drink Containing Alcohol: Never - Substance Use History Substance History: No History of Abuse - Travel History History of Recent Travel: No Recent Travel in the [place] Within the Last 8 Weeks: No Recent Travel Out of the Country Within the Last 8 Weeks: No - Immunization History Tetanus Immunization: Unsure Hx Influenza Vaccine This Season: No Medications and Allergies Active Medications: Active Medications Acetaminophen (Tylenol) 650 mg PO Q6HR PRN PRN Reason: PAIN SCALE 1 TO 2 Aspirin (Aspirin Chew) 162 mg PO DAILY [facility] Atorvastatin Calcium (Lipitor) 40 mg PO HS [facility] Hydromorphone HCl (Dilaudid) 1 mg PO Q4H PRN PRN Reason: PAIN SCALE 3 TO 5 Hydromorphone HCl (Dilaudid) 2 mg PO Q4H PRN PRN Reason: PAIN SCALE 6 TO 10 Sodium Chloride (Ns Inj) 1,000 mls @ 30 mls/hr IV.SIG .Q24H [facility] Stop: 03/28/18 02:29 Last Infusion: 03/27/18 04:44 Dose: 30 mls/hr Tirofiban/Sodium Chloride (Aggrastat Inj) 12,500 mcg in 250 mls @ 0 mls/hr IV.CONT .Q0M [facility]; Protocol Last Infusion: 03/27/18 04:44 Dose: 0.15 mcg/kg/min, 15.92 mls/hr Metoprolol Tartrate (Lopressor) 25 mg PO BID [facility] Morphine Sulfate (Morphine Inj) 2 mg IV.PUSH Q3H PRN PRN Reason: PAIN 3-5; IF UABLE TO TAKE PO Morphine Sulfate (Morphine Inj) 4 mg IV.PUSH Q3H PRN PRN Reason: PAIN 6-10;IF UNABLE TO TAKE PO Naloxone HCl (Narcan Inj) 0.4 mg IV.PUSH UNSCH PRN PRN Reason: SEE LABEL COMMENTS Ondansetron HCl (Zofran Inj) 8 mg IV.PUSH Q4H PRN PRN Reason: NAUSEA OR VOMITING Prasugrel (Effient) 10 mg PO DAILY [facility] Sodium Chloride (Ns Flush) 2 ml IV.FLUSH PRN PRN PRN Reason: FLUSH AFTER USING IV ACCESS Sodium Chloride (Ns Flush) 2 ml IV.FLUSH BID [facility] Sodium Chloride (Ns Flush) 2 ml IV.FLUSH PRN PRN PRN Reason: FLUSH AFTER USING IV ACCESS Allergies Allergy/AdvReac Type Severity Reaction Status Date / Time hydrocodone Allergy Severe Agitation Verified 03/27/18 02:23 codeine Allergy Agitation Verified 03/27/18 02:23 Exam Vital signs: Vital Signs 03/27/18 02:15 03/27/18 02:20 03/27/18 02:35 Temperature 97.6 F Pulse Rate 63 Respiratory Rate 18 Blood Pressure 161/91 H Pulse Oximetry 100 100 100 03/27/18 02:43 03/27/18 02:49 03/27/18 04:53 Temperature 98.0 F Pulse Rate 72 106 H Respiratory Rate 18 18 Blood Pressure 143/72 H 142/87 H Pulse Oximetry 100 100 98 03/27/18 04:58 03/27/18 05:00 03/27/18 06:00 Temperature Pulse Rate 99 H 103 H Respiratory Rate Blood Pressure 147/94 H Pulse Oximetry 03/27/18 07:00 03/27/18 08:00 Temperature 98.1 F Pulse Rate 104 H 104 H Respiratory Rate 18 Blood Pressure 147/91 H 139/89 Pulse Oximetry 98 Intake & Output 03/26/18 03/27/18 03/27/18 18:59 06:59 18:59 Intake Total 15.9 / 15.9 Output Total 50 / 50 Balance -34.1 / -34.1 Weight 95.5 kg Intake: IV 15.9 / 15.9 Heparin/NS PF Inj 1,000 ML @ 0 0 / 0 mls/hr .ROUTE .[facility] Rx#: [id number] Aggrastat Inj 12,500 mcg In 250 15.9 / 15.9 ml @ 0 mls/hr .ROUTE [facility] Rx#:[id number] Output: Urine 50 / 50 Narrative: GENERAL: Awake alert and oriented 3 talkative and cooperative appears to be in no acute distress SKIN: Warm and dry. HEAD: Atraumatic. Normocephalic. EYES: Pupils equal and round. No scleral icterus. No injection or drainage. EOMI ENT: No nasal bleeding or discharge. Mucous membranes pink and moist. Tongue is midline NECK: Trachea midline. No JVD. Supple CARDIOVASCULAR: Regular rate and rhythm. S1-S2 no S3 or S4 some tachycardia RESPIRATORY: No accessory muscle use. Clear to auscultation. Breath sounds equal bilaterally. GASTROINTESTINAL: Abdomen soft, non-tender, nondistended. Hepatic and splenic margins not palpable. MUSCULOSKELETAL: Extremities without clubbing, cyanosis, or edema. No obvious deformities. Right groin is stable NEUROLOGICAL: Awake and alert. No obvious cranial nerve deficits. Motor grossly within normal limits. Five out of 5 muscle strength in the arms and legs. Normal speech. PSYCHIATRIC: Appropriate mood and affect; insight and judgment normal. Results - Labs CBC & Chem 7: 03/27/18 02:25 Labs: Short CBC 03/27/18 Range/Units 02:25 WBC 20.4 H (4.0-11.0) th/mm3 Hgb 16.4 (13.0-17.0) gm/dL Hct 49.0 (39.0-51.0) % Plt Count 312 (150-450) th/mm3 BMP 03/27/18 02:25 Calcium 8.4 L Cardiac Enzymes 03/27/18 Range/Units 02:25 Total Creatine Kinase 151 (39-308) U/L CK-MB (CK-2) 2.6 (0.5-3.6) ng/mL Troponin I 0.05 (0.02-0.05) ng/mL - Imaging Impressions Chest X-Ray 03/27/18 02:23 CONCLUSION: No acute cardiopulmonary abnormality is identified. Caprini VTE Risk Assessment Caprini VTE Risk Assessment: Moderate/High Risk (score >= 2) Caprini Risk Assessment Model: Point Value = 1 Point Value = 2 Point Value = 3 Point Value = 5 Age 41-60 Minor surgery BMI > 25 kg/m2 Swollen legs Varicose veins or History of unexplained or recurrent spontaneous Oral contraceptives or hormone replacement Sepsis (< 1 month) Serious lung disease, including pneumonia (< 1 month) Abnormal pulmonary function Acute myocardial infarction Congestive heart failure (< 1 month) History of inflammatory bowel disease Medical patient at bed rest Age 61-74 Arthroscopic surgery Major open surgery (> 45 min) Laparoscopic surgery (> 45 min) Malignancy Confined to bed (> 72 hours) Immobilizing plaster cast Central venous access Age >= 75 History of VTE Family history of VTE Factor V Leiden Prothrombin [id number] Lupus anticoagulant Anticardiolipin antibodies Elevated serum homocysteine Heparin-induced thrombocytopenia Other congenital or acquired thrombophilia Stroke (< 1 month) Elective arthroplasty Hip, pelvis, or leg fracture Acute spinal cord injury (< 1 month) Prophylaxis Regimen: Total Risk Factor Score Risk Level Prophylaxis Regimen 0-1 Low Early ambulation 2 Moderate Order ONE of the following: *Sequential Compression Device (SCD) *Heparin 5000 units SQ BID 3-4 Higher Order ONE of the following medications: *Heparin 5000 units SQ TID *Enoxaparin/Lovenox 40 mg SQ daily (WT < 150 kg, CrCl > 30 mL/min) *Enoxaparin/Lovenox 30 mg SQ daily (WT < 150 kg, CrCl > 10-29 mL/min) *Enoxaparin/Lovenox 30 mg SQ BID (WT < 150 kg, CrCl > 30 mL/min) AND/OR *Sequential Compression Device (SCD) 5 or more Highest Order ONE of the following medications: *Heparin 5000 units SQ TID (Preferred with Epidurals) *Enoxaparin/Lovenox 40 mg SQ daily (WT < 150 kg, CrCl > 30 mL/min) *Enoxaparin/Lovenox 30 mg SQ daily (WT < 150 kg, CrCl > 10-29 mL/min) *Enoxaparin/Lovenox 30 mg SQ BID (WT < 150 kg, CrCl > 30 mL/min) AND *Sequential Compression Device (SCD) Assessment and Plan - Plan ST elevation [place] status post bare metal stent to the right coronary artery by Dr. Dejesus earlier today Continue on Effient continue on aspirin continue on beta-blockade -Noted to have multivessel disease on cardiac catheterization please see report Tachycardia we will initiate beta-blockade with metoprolol 25 mg p.o. twice daily Hypertension by history we will see how this is. Had previously been on Norvasc 5 mg p.o. daily Hyperlipidemia will check lipids and start on Lipitor 40 mg p.o. nightly Family history of coronary artery disease History of tonsillectomy and appendectomy Nausea will continue on 8 mg of Zofran every 4 hours as needed nausea vomiting IV GI prophylaxis with Pepcid DVT prophylaxis with the Effient and aspirin Code Status: Full code Discussed Condition With: RN and patient and family Discharge Planning: Pending clearance by cardiology
[2018-03-27] MEDS ORDERED: Bisacodyl 10 MG Supp RECTAL PRN (10:30)
[2018-03-27] MEDS: Metoprolol Tartrate 25 MG Tablet PO SCH ×2 (12:01→23:27)
[2018-03-27] MEDS: Sod Chloride 0.9% Inj 1,000 ML IV.CONT SCH ×2 (12:15→23:28)
[2018-03-27] MEDS: Morphine Sulfate Inj 2 MG/ML Vial IV.PUSH PRN ×2 (14:24→21:12)
[2018-03-27 16:09] LABS: Hemoglobin A1c 5.4 % (4.3-6.0)
--- NOTE | 2018-03-27 17:42 | ECHRPT ---
Indication: HHD CONCLUSIONS The left ventricular systolic function is mildly reduced with an estimated ejection fraction in the range of 45- 50%. Normal left ventricular size. Wall thickness is normal. No regional wall motion abnormalities are present. There is trace tricuspid valve regurgitation. The estimated pulmonary arterial pressure is 29.5 mmHg. BP: / HR: Rhythm: Sinus MEASUREMENTS (Male / Female) Normal Values Technical Quality:Fair 2D ECHO LV Diastolic Diameter PLAX 3.9 cm 4.2 - 5.9 / 3.9 - 5.3 cm LV Systolic Diameter PLAX 3.0 cm IVS Diastolic Thickness 1.1 cm 0.6 - 1.0 / 0.6 - 0.9 cm LVPW Diastolic Thickness 1.1 cm 0.6 - 1.0 / 0.6 - 0.9 cm LV Relative Wall Thickness 0.6 RV Internal Dim ED PLAX 3.0 cm LVOT Diameter 2.0 cm LA Systolic Diameter LX 3.5 cm 3.0 - 4.0 / 2.7 - 3.8 cm LV Ejection Fraction MOD 4C 51.6 % LV Ejection Fraction 4C AL 53.2 % M-MODE Aortic Root Diameter MM 3.0 cm LA Systolic Diameter MM 3.4 cm LA Ao Ratio MM 1.1 AV Cusp Separation MM 1.9 cm DOPPLER AV Peak Velocity 96.4 cm/s AV Peak Gradient 3.7 mmHg LVOT Peak Velocity 61.7 cm/s LVOT Peak Gradient 1.5 mmHg AV Area Cont Eq pk 2.0 cm MV Area PHT 5.1 cm LV E' Lateral Velocity 13.5 cm/s LV E' Septal Velocity 6.2 cm/s TR Peak Velocity 221.0 cm/s TR Peak Gradient 19.5 mmHg Right Atrial Pressure 10.0 mmHg Pulmonary Artery Systolic Pressu 29.5 mmHg Right Ventricular Systolic Press 29.5 mmHg PV Peak Velocity 69.2 cm/s PV Peak Gradient 1.9 mmHg FINDINGS LEFT VENTRICLE The left ventricular systolic function is mildly reduced with an estimated ejection fraction in the range of 45- 50%. Normal left ventricular size. Wall thickness is normal. No regional wall motion abnormalities are present. RIGHT VENTRICLE Normal right ventricular size and systolic function. LEFT ATRIUM The left atrial size is normal. RIGHT ATRIUM The right atrial size is normal. ATRIAL SEPTUM Normal atrial septal thickness without atrial level shunting by limited color doppler interrogation. AORTA The aortic root and proximal ascending aorta are normal in size on limited imaging. MITRAL VALVE Structurally normal mitral valve. No mitral valve stenosis or regurgitation. AORTIC VALVE Trileaflet aortic valve. No aortic valve stenosis or regurgitation. TRICUSPID VALVE Structurally normal tricuspid valve. There is trace tricuspid valve regurgitation. The estimated pulmonary arterial pressure is 29.5 mmHg. PULMONARY VALVE No pulmonary valve regurgitation or stenosis. VESSELS The inferior vena cava is normal in size. PERICARDIUM No pericardial effusion. Tim Lord MD, FACC (Electronically Signed) Final Date:27 March 2018 17:41
[2018-03-27] MEDS ORDERED: Iohexol 350 MG/ML 100 ML Vial (for Cath Lab) IVCONTRAST ONE (17:58)
[2018-03-27] MEDS ORDERED: Magnesium Sulfate Inj 2 GM in Sodium Chlor 0.9% Inj 96 ML IV.SIG ONE (18:00)
[2018-03-27 20:50] LABS: Creatine Kinase 1716 U/L (39-308)
[2018-03-27] MEDS: Temazepam 15 MG Capsule PO PRN (21:12)
[2018-03-27] MEDS: Senna/Docusate Sodium 8.6/50 MG Tablet PO SCH (21:12)
[2018-03-27 21:14] LABS: Creatine Kinase MB 198.2 ng/mL (0.5-3.6)
[2018-03-27 21:16] LABS: CKMB Percent 11.6 % (0.0-4.0)
[2018-03-27 22:28] LABS: Calcium 8.1 mg/dL (8.5-10.1); Carbon Dioxide 22.4 meq/L (21.0-32.0); Potassium 4.3 meq/L (3.5-5.1)
[2018-03-28 05:22] LABS: INR 1.1 Ratio; Prothrombin Time 11.1 sec (9.8-11.6)
[2018-03-28 05:35] LABS: Albumin 3.5 g/dL (3.4-5.0); Anion Gap 9 meq/L (5-15); Aspartate Aminotransferase 307 U/L (15-37); Blood Urea Nitrogen 19 mg/dL (7-18); Calcium 7.8 mg/dL (8.5-10.1); Carbon Dioxide 28.9 meq/L (21.0-32.0); Chloride 105 meq/L (98-107); Glomerular Filtration Rate 55 mL/min (>89); Glucose,Random 116 mg/dL (74-106); Magnesium 2.3 mg/dL (1.5-2.5); Potassium 4.4 meq/L (3.5-5.1); Sodium 143 meq/L (136-145)
[2018-03-28 05:36] LABS: Alanine Aminotransferase 93 U/L (12-78); Cholesterol 199 mg/dL (120-200); Phosphorus 2.1 mg/dL (2.5-4.9); Triglycerides 204 mg/dL (42-150)
[2018-03-28 05:50] LABS: Alkaline Phosphatase 74 U/L (45-117); Chol/HDL Ratio 5.05 Ratio; Creatine Kinase 1012 U/L (39-308); HDL Cholesterol 39.4 mg/dL (40.0-60.0); LDL Cholesterol,Calculated 119 mg/dL (0-99); Total Protein 6.8 g/dL (6.4-8.2)
[2018-03-28 05:51] LABS: Baso # (Auto) 0.1 th/mm3 (0.0-0.2); Baso % (Auto) 0.3 % (0.0-2.0); Eos % (Auto) 0.1 % (0.0-4.0); Hematocrit 47.2 % (39.0-51.0); Hemoglobin 15.9 gm/dL (13.0-17.0); Lymph # (Auto) 2.2 th/mm3 (1.0-4.8); Lymph % (Auto) 11.4 % (9.0-44.0); Mean Corpuscular HGB Conc 33.6 % (32.0-36.0); Mean Corpuscular Hemoglobin 30.1 pg (27.0-34.0); Mean Corpuscular Volume 89.6 fL (80.0-100.0); Mean Platelet Volume 8.7 fL (7.0-11.0); Mono # (Auto) 1.6 th/mm3 (0.0-0.9); Mono % (Auto) 8.2 % (0.0-8.0); Neut # (Auto) 15.4 th/mm3 (1.8-7.7); Platelet Count 249 th/mm3 (150-450); Red Blood Count 5.27 mil/mm3 (4.50-5.90); Red Cell Distribution Width 14.1 % (11.6-17.2); White Blood Count 19.3 th/mm3 (4.0-11.0)
[2018-03-28 06:13] LABS: Creatine Kinase MB 86.9 ng/mL (0.5-3.6)
[2018-03-28 06:19] LABS: CKMB Percent 8.6 % (0.0-4.0)
[2018-03-28] MEDS: Sod Chloride 0.9% Inj 1,000 ML IV.CONT SCH (07:00)
--- NOTE | 2018-03-28 07:33 | ECG ---
Date Performed: 03/28/2018 Time Performed: 05:06:50 PTAGE: 52 years EKG: Atrial fibrillation Prolonged QT interval Poor R wave progression - probable normal variant Extensive T wave changes may be due to myocardial ischemia Low QRS voltages in limb leads Abnormal E CG PREVIOUS TRACING : 03/27/2018 02.13 DOCTOR: Tim Lord Interpretating Date/Time 03/28/2018 07:31:17
[2018-03-28] MEDS ORDERED: Levothyroxine 50 MCG Tablet PO SCH (09:05)
[2018-03-28] MEDS: Metoprolol Tartrate 25 MG Tablet PO SCH ×2 (10:15→21:01)
--- NOTE | 2018-03-28 10:27 | P.PNIM ---
Subjective Interval history: PATIENT IS A 52 YEAR OLD GENTLEMAN WHO PRESENTED TO THE EMERGENCY DEPARTMENT HERE AT [facility] FOR CHEST PAIN THAT OCCURRED DURING SEXUAL RELATIONSHIPS. PATIENT WAS NOTED TO HAVE AN STEMI AND WAS TAKE EMERGENTLY TO THE [facility] BY DR DEJESUS AND UNDERWENT STENT PLACEMENT TO RIGHT CORONARY ARTERY HAS BEEN PLACED ON EFFIENT AND ASPIRIN 325MG WILL ADD STATIN LIPITOR 40MG PO QHS METOPROLOL 25MG PO BID AT HOME NORMALLY TAKES ASA 81MG AND NORVASC 5MG DAILY POSITIVE FAMILY HX OF HEART DISEASE AND DIABETES 9-4 TROPONINS HAVE NOT TRENDED DOWN DENIES ANY CHEST PAIN FOUND TO BE HYPOTHYROID WILL START ON SYNTHROID 50MCG PO DAILY DW RN AND PT AM LABS DENIES ANY SOB Physical Exam Vital signs: Vital Signs 03/27/18 10:33 03/27/18 11:00 03/27/18 12:00 Temperature 98.2 F Pulse Rate 91 H 109 H Respiratory Rate 18 Blood Pressure 144/95 H Pulse Oximetry 98 99 03/27/18 13:00 03/27/18 16:00 03/27/18 16:17 Temperature 99.0 F Pulse Rate 85 100 H Respiratory Rate 16 Blood Pressure 123/87 Pulse Oximetry 99 96 03/27/18 18:00 03/27/18 19:00 03/27/18 20:00 Temperature 98.5 F Pulse Rate 88 76 86 Respiratory Rate 22 Blood Pressure 120/87 Pulse Oximetry 97 97 03/27/18 21:00 03/27/18 22:00 03/27/18 23:00 Temperature 98.3 F Pulse Rate 78 82 71 Respiratory Rate 22 Blood Pressure 119/89 Pulse Oximetry 96 03/28/18 00:00 03/28/18 01:00 03/28/18 02:00 Temperature Pulse Rate 76 72 72 Respiratory Rate 22 Blood Pressure Pulse Oximetry 03/28/18 03:00 03/28/18 04:00 03/28/18 05:00 Temperature 98.6 F Pulse Rate 68 78 78 Respiratory Rate 22 Blood Pressure 92/69 L Pulse Oximetry 94 L 03/28/18 06:00 03/28/18 09:31 Temperature Pulse Rate 96 H Respiratory Rate Blood Pressure Pulse Oximetry 95 Intake & Output 03/27/18 03/28/18 03/28/18 18:59 06:59 18:59 Intake Total 575 / 575 1495 / 1495 Output Total 575 / 575 600 / 600 Balance 0 / 0 895 / 895 Weight 92.5 kg Intake: IV 250 / 250 1255 / 1255 NS Inj 1,000 ML @ 100 mls/hr IV 1050 / 1050 .CONT .Q10H [facility] Rx#:[id number] Aggrastat Inj 12,500 mcg In 250 250 / 250 105 / 105 ml @ Per Protocol IV.CONT .Q0M [facility] Rx#:[id number] Magnesium Sulfate Inj 2 GM In 100 / 100 NS Inj 96 ML @ 50 mls/hr IV.SIG ONCE ONE Rx#:[id number] Oral 325 / 325 240 / 240 Output: Urine 575 / 575 600 / 600 Narrative: GENERAL: Awake alert and oriented 3 talkative and cooperative appears to be in no acute distress SKIN: Warm and dry. HEAD: Atraumatic. Normocephalic. EYES: Pupils equal and round. No scleral icterus. No injection or drainage. EOMI ENT: No nasal bleeding or discharge. Mucous membranes pink and moist. Tongue is midline NECK: Trachea midline. No JVD. Supple CARDIOVASCULAR: Regular rate and rhythm. S1-S2 no S3 or S4 some tachycardia RESPIRATORY: No accessory muscle use. Clear to auscultation. Breath sounds equal bilaterally. GASTROINTESTINAL: Abdomen soft, non-tender, nondistended. Hepatic and splenic margins not palpable. MUSCULOSKELETAL: Extremities without clubbing, cyanosis, or edema. No obvious deformities. Right groin is stable NEUROLOGICAL: Awake and alert. No obvious cranial nerve deficits. Motor grossly within normal limits. Five out of 5 muscle strength in the arms and legs. Normal speech. PSYCHIATRIC: Appropriate mood and affect; insight and judgment normal. Results - Labs CBC & Chem 7: 03/28/18 05:01 03/28/18 05:01 Laboratory Results - last 24 hr 03/27/18 03/27/18 03/27/18 02:25 02:25 02:25 WBC RBC Hgb Hct MCV MCH MCHC RDW Plt Count MPV Neut % (Auto) Lymph % (Auto) Canadian % (Auto) Eos % (Auto) Baso % (Auto) Neut # (Auto) Lymph # (Auto) Canadian # (Auto) Eos # (Auto) Baso # (Auto) WBC Differential Differential Comment PT INR Sodium Potassium Chloride Carbon Dioxide Anion Gap BUN Creatinine Estimated GFR Random Glucose Hemoglobin A1c 5.4 Calcium Phosphorus Magnesium Total Bilirubin AST ALT Alkaline Phosphatase Total Creatine Kinase CK-MB (CK-2) CK-MB (CK-2) % Troponin I Total Protein Albumin Triglycerides Cholesterol LDL Cholesterol, Calc HDL Cholesterol Cholesterol/HDL Ratio TSH 12.000 H Free T4 1.07 03/27/18 03/27/18 03/27/18 19:11 21:30 21:30 WBC RBC Hgb Hct MCV MCH MCHC RDW Plt Count MPV Neut % (Auto) Lymph % (Auto) Canadian % (Auto) Eos % (Auto) Baso % (Auto) Neut # (Auto) Lymph # (Auto) Canadian # (Auto) Eos # (Auto) Baso # (Auto) WBC Differential Differential Comment PT INR Sodium 141 Potassium 4.3 Chloride 107 Carbon Dioxide 22.4 Anion Gap 12 BUN 15 Creatinine 0.97 Estimated GFR 82 L Random Glucose 115 H Hemoglobin A1c Calcium 8.1 L Phosphorus Magnesium 2.5 Total Bilirubin AST ALT Alkaline Phosphatase Total Creatine Kinase 1716 H CK-MB (CK-2) 198.2 H CK-MB (CK-2) % 11.6 H* Troponin I Greater than 40.00 H* Total Protein Albumin Triglycerides Cholesterol LDL Cholesterol, Calc HDL Cholesterol Cholesterol/HDL Ratio TSH Free T4 03/28/18 03/28/18 03/28/18 05:01 05:01 05:01 WBC 19.3 H RBC 5.27 Hgb 15.9 Hct 47.2 MCV 89.6 MCH 30.1 MCHC 33.6 RDW 14.1 Plt Count 249 MPV 8.7 Neut % (Auto) 80.0 H Lymph % (Auto) 11.4 Canadian % (Auto) 8.2 H Eos % (Auto) 0.1 Baso % (Auto) 0.3 Neut # (Auto) 15.4 H Lymph # (Auto) 2.2 Canadian # (Auto) 1.6 H Eos # (Auto) 0.0 Baso # (Auto) 0.1 WBC Differential . Differential Comment Auto diff final PT 11.1 INR 1.1 Sodium 143 Potassium 4.4 Chloride 105 Carbon Dioxide 28.9 Anion Gap 9 BUN 19 H Creatinine 1.38 H Estimated GFR 55 L Random Glucose 116 H Hemoglobin A1c Calcium 7.8 L Phosphorus 2.1 L Magnesium 2.3 Total Bilirubin 1.1 H AST 307 H ALT 93 H Alkaline Phosphatase 74 Total Creatine Kinase 1012 H CK-MB (CK-2) 86.9 H CK-MB (CK-2) % 8.6 H* Troponin I Greater than 40.00 H* Total Protein 6.8 Albumin 3.5 Triglycerides 204 H Cholesterol 199 LDL Cholesterol, Calc 119 H HDL Cholesterol 39.4 L Cholesterol/HDL Ratio 5.05 TSH Free T4 - Imaging Chest X-Ray 03/27/18 02:23 CONCLUSION: No acute cardiopulmonary abnormality is identified. - Procedures 03/27/2018 PROCEDURES PERFORMED: Left heart catheterization, left ventriculography, coronary angiography, direct percutaneous coronary intervention with bare-metal stent of the proximal right coronary artery. INDICATIONS FOR PROCEDURE: STEMI, coronary artery disease, history of atrial fibrillation. PROCEDURE IN DETAIL: The patient was brought to the cardiac catheterization laboratory, prepped and draped in the usual sterile fashion and 10 mL of 1% lidocaine was used to locally anesthetize the right common femoral artery. A 6-Moldovan sheath was placed in right common femoral artery. A 6-Moldovan JR4 guide was placed at the right coronary artery os. Imaging revealed an occluded proximal right coronary artery. The patient's initial ACT was 198 and additional 60 units/kg of heparin was given at the initiation of the procedure. ACT was 273. A 0.014 [place] guidewire was used to cross the occluded proximal right coronary artery, which resulted in reperfusion with a 95% stenosis residual of about 12 mm of length in the proximal right coronary artery. This was directly stented with a 3.5 x 15 integrity stent with one inflation, 11 atmospheres for 20 seconds. Stenosis went from 100% to 0% with PAPITO-3 flow. The right PDA had a 90% proximal stenosis. Right REMEDIOS had a 70% proximal stenosis. The vessel was of 3.5 vessel throughout its entire length. Also in the right coronary artery there was a 20% stenosis. The left main coronary artery has no significant disease angiographically. The LAD had mild 20% proximal stenosis. It is a non-transapical vessel. There is a 40%-50% stenosis after the first diagonal artery. The first diagonal artery is a medium-sized vessel, to at least 2.5 mm in diameter, with a mid to distal 60%-70% stenosis. The left circumflex vessel has no focal stenosis; however, it tapers from an approximately 2.75 mm vessel in the proximal segment down to about a 1.75-2 mm vessel within a distance of approximately 15 mm. The first obtuse marginal vessel was a 0.5 mm vessel. No significant disease angiographically. Second obtuse marginal vessel is a small vessel as well, 1 mm in diameter. No significant disease angiographically. The remainder of the AV groove of the left circumflex vessels supplies 2 small 0.25 mm posterolateral arteries, which have no significant disease angiographically. I then performed a left ventriculogram. LV pressures were 115/20-22. Ejection fraction was 55%. The posterior wall was at least moderately hypokinetic, but did have wall motion suggesting viability. Mid inferior wall is at least mild to moderately hypokinetic. Note, the patient had residual chest pain. We gave 200 mcg of intracoronary Nipride in 100 mcg increments. Chest pain at the end of procedure went from 10/10 to 2/10. CONCLUSION: 1. ST elevation myocardial infarction, culprit occluded proximal right coronary artery as detailed above. 2. Successful direct percutaneous coronary intervention with bare-metal stent of the proximal right coronary artery from 100% with PAPITO 0 flow to 0% with PAPITO 3 flow. 3. A 90%-95% proximal mid right PDA lesion. 4. A 70% proximal mid right REMEDIOS lesion as detailed above. 5. A 60-70% mid diagonal vessel stenosis as detailed above. Otherwise, moderate left anterior descending artery and circumflex disease as detailed above. 6. Preserved left ventricular systolic, ejection fraction of 55% with at least moderate hypokinesis of the posterior wall and mild to moderate hypokinesis of the mid inferior wall. 7. Recommend Effient 60 mg p.o. load then 10 mg daily for 12-15 months, aspirin 162 mg daily. The patient was bradycardic prior to the procedure. He did respond well to 0.6 of atropine, but will hold beta kyle over the next 24 hours to determine the trend in heart rate. FLACO inhibitor will be held for the first 24 hours given relatively low systolic blood pressure. Post procedure, it was around 100. We will treat lipids per NCBI guidelines. Nic Dejesus MD Assessment and Plan - Plan ST elevation [place] status post bare metal stent to the right coronary artery by Dr. Dejesus earlier today Continue on Effient continue on aspirin continue on beta-blockade -Noted to have multivessel disease on cardiac catheterization please see report TROPONINS STILL NOTED TO BE ELEVATED Tachycardia we will initiate beta-blockade with metoprolol 25 mg p.o. twice daily Hypertension by history we will see how this is. Had previously been on Norvasc 5 mg p.o. daily Hyperlipidemia will check lipids and start on Lipitor 40 mg p.o. nightly Family history of coronary artery disease History of tonsillectomy and appendectomy Nausea will continue on 8 mg of Zofran every 4 hours as needed nausea vomiting IV GI prophylaxis with Pepcid HYPOTHYROIDISM START SYNTHROID 50MCG DAILY FOR TSH OF 12 LEUKOCYTOSIS MONITOR AM LABS RENAL INSUFFICIENCY - MONITOR LABS- WATCH BLOOD PRESSURES ELEVATED LFTS AND CK-MB AND TROPONIS DVT prophylaxis with the Effient and aspirin CHECK AM LABS Code Status: FULL CODE Discussed Condition With: RN AND PT Discharge Planning: Pending clearance by cardiology
[2018-03-28 14:31] LABS: Troponin I 39.6 ng/mL (0.02-0.05)
[2018-03-28 14:43] LABS: CKMB Percent 3.3 % (0.0-4.0); Creatine Kinase MB 35.6 ng/mL (0.5-3.6)
--- NOTE | 2018-03-28 15:59 | P.PNCA ---
Subjective Interval history: alert in nad, denies chest pain, c/o dyspnea in bed but not with ambulation Physical Exam Vital signs: Vital Signs 03/27/18 16:00 03/27/18 16:17 03/27/18 18:00 Temperature 99.0 F Pulse Rate 100 H 88 Respiratory Rate 16 Blood Pressure 123/87 Pulse Oximetry 99 96 03/27/18 19:00 03/27/18 20:00 03/27/18 21:00 Temperature 98.5 F Pulse Rate 76 86 78 Respiratory Rate 22 Blood Pressure 120/87 Pulse Oximetry 97 97 03/27/18 22:00 03/27/18 23:00 03/28/18 00:00 Temperature 98.3 F Pulse Rate 82 71 76 Respiratory Rate 22 22 Blood Pressure 119/89 Pulse Oximetry 96 03/28/18 01:00 03/28/18 02:00 03/28/18 03:00 Temperature 98.6 F Pulse Rate 72 72 68 Respiratory Rate 22 Blood Pressure 92/69 L Pulse Oximetry 94 L 03/28/18 04:00 03/28/18 05:00 03/28/18 06:00 Temperature Pulse Rate 78 78 96 H Respiratory Rate Blood Pressure Pulse Oximetry 03/28/18 07:00 03/28/18 09:31 Temperature 98.7 F Pulse Rate 81 Respiratory Rate 18 Blood Pressure 130/86 Pulse Oximetry 96 95 Intake & Output 03/27/18 03/28/18 03/28/18 18:59 06:59 18:59 Intake Total 575 / 575 1495 / 1495 Output Total 575 / 575 600 / 600 Balance 0 / 0 895 / 895 Weight 92.5 kg Intake: IV 250 / 250 1255 / 1255 NS Inj 1,000 ML @ 100 mls/hr IV 1050 / 1050 .CONT .Q10H BEBA Rx#:[id number] Aggrastat Inj 12,500 mcg In 250 250 / 250 105 / 105 ml @ Per Protocol IV.CONT .Q0M BEBA Rx#:[id number] Magnesium Sulfate Inj 2 GM In 100 / 100 NS Inj 96 ML @ 50 mls/hr IV.SIG ONCE ONE Rx#:[id number] Oral 325 / 325 240 / 240 Output: Urine 575 / 575 600 / 600 Assessment and Plan - Assessment (1) CAD (coronary artery disease) Code(s): I25.10 - Atherosclerotic heart disease of [place] coronary artery without angina pectoris Status: Acute (2) CRI (chronic renal insufficiency) Code(s): N18.9 - Chronic kidney disease, unspecified Status: Acute (3) CRI (chronic renal insufficiency) Code(s): N18.9 - Chronic kidney disease, unspecified Status: Acute (4) ST elevation (STEMI) myocardial infarction Code(s): I21.3 - ST elevation (STEMI) myocardial infarction of unspecified site Status: Acute - Plan 1.) CAD - pod # 1 primary pci prox rca with bms, moderate to severe 3 vessel cad, ambulate with assiatnce, recheck cpk/trop x 2, continue aspirin, effient, lopressor, lipitor (4) ST elevation (STEMI) myocardial infarction Qualifiers: Involved coronary artery: right coronary artery Qualified Code(s): I21.11 - ST elevation (STEMI) myocardial infarction involving right coronary artery
[2018-03-28] MEDS: Senna/Docusate Sodium 8.6/50 MG Tablet PO SCH (20:51)
[2018-03-28] MEDS: Temazepam 15 MG Capsule PO PRN (21:01)
[2018-03-28] MEDS: Morphine Sulfate Inj 2 MG/ML Vial IV.PUSH PRN (21:01)
[2018-03-29] MEDS: Senna/Docusate Sodium 8.6/50 MG Tablet PO SCH (02:50)
[2018-03-29 06:22] LABS: Baso # (Auto) 0.1 th/mm3 (0.0-0.2); Baso % (Auto) 0.6 % (0.0-2.0); Eos # (Auto) 0.1 th/mm3 (0.0-0.4); Eos % (Auto) 0.9 % (0.0-4.0); Hematocrit 43.1 % (39.0-51.0); Hemoglobin 14.7 gm/dL (13.0-17.0); Lymph # (Auto) 2.6 th/mm3 (1.0-4.8); Lymph % (Auto) 20.3 % (9.0-44.0); Mean Corpuscular HGB Conc 34.1 % (32.0-36.0); Mean Corpuscular Hemoglobin 29.8 pg (27.0-34.0); Mean Corpuscular Volume 87.5 fL (80.0-100.0); Mean Platelet Volume 8.8 fL (7.0-11.0); Mono # (Auto) 1.2 th/mm3 (0.0-0.9); Mono % (Auto) 9.1 % (0.0-8.0); Neut % (Auto) 69.1 % (16.0-70.0); Platelet Count 197 th/mm3 (150-450); Red Blood Count 4.93 mil/mm3 (4.50-5.90); Red Cell Distribution Width 13.8 % (11.6-17.2)
[2018-03-29] MEDS: Sod Chloride 0.9% Inj 1,000 ML IV.CONT SCH (06:33)
[2018-03-29 06:47] LABS: Albumin 3.3 g/dL (3.4-5.0); Anion Gap 10 meq/L (5-15); Aspartate Aminotransferase 206 U/L (15-37); Blood Urea Nitrogen 20 mg/dL (7-18); Calcium 8.1 mg/dL (8.5-10.1); Carbon Dioxide 26.4 meq/L (21.0-32.0); Chloride 105 meq/L (98-107); Glomerular Filtration Rate 67 mL/min (>89); Glucose,Random 90 mg/dL (74-106); Magnesium 2.1 mg/dL (1.5-2.5); Sodium 141 meq/L (136-145)
[2018-03-29 06:48] LABS: Alanine Aminotransferase 80 U/L (12-78); Phosphorus 1.3 mg/dL (2.5-4.9)
[2018-03-29 07:23] LABS: Alkaline Phosphatase 74 U/L (45-117); Creatine Kinase 3680 U/L (39-308); Total Protein 6.6 g/dL (6.4-8.2)
[2018-03-29 07:40] LABS: CKMB Percent 0.3 % (0.0-4.0); Creatine Kinase MB 11.1 ng/mL (0.5-3.6)
[2018-03-29 08:32] VITALS: RESP 16
[2018-03-29] MEDS: Metoprolol Tartrate 25 MG Tablet PO SCH (08:39)
--- NOTE | 2018-03-29 09:40 | P.PNIM ---
Subjective Interval history: PATIENT IS A 52 YEAR OLD GENTLEMAN WHO PRESENTED TO THE EMERGENCY DEPARTMENT HERE AT [facility] FOR CHEST PAIN THAT OCCURRED DURING SEXUAL RELATIONSHIPS. PATIENT WAS NOTED TO HAVE AN STEMI AND WAS TAKE EMERGENTLY TO THE [facility]LE[facility]IC[facility] TECHNICIAN BY DR DEJESUS AND UNDERWENT STENT PLACEMENT TO RIGHT CORONARY ARTERY HAS BEEN PLACED ON EFFIENT AND ASPIRIN 325MG WILL ADD STATIN LIPITOR 40MG PO QHS METOPROLOL 25MG PO BID AT HOME NORMALLY TAKES ASA 81MG AND NORVASC 5MG DAILY POSITIVE FAMILY HX OF HEART DISEASE AND DIABETES 9-5 TROPONINS HAVE NOT TRENDED DOWN DENIES ANY CHEST PAIN FOUND TO BE HYPOTHYROID WILL START ON SYNTHROID 50MCG PO DAILY DW RN AND PT AM LABS DENIES ANY SOB 9-6 wants to go home NO CHEST PAIN DW RN AND PT DC TO HOME TROPONINS TRENDING DOWN DW CARDIOLOGY Physical Exam Vital signs: Vital Signs 03/28/18 10:00 03/28/18 11:00 03/28/18 12:00 Temperature 98.7 F Pulse Rate 78 82 78 Respiratory Rate 18 Blood Pressure Pulse Oximetry 95 03/28/18 13:00 03/28/18 14:00 03/28/18 15:00 Temperature 98.7 F Pulse Rate 78 74 86 Respiratory Rate 18 Blood Pressure 117/79 Pulse Oximetry 98 03/28/18 16:00 03/28/18 17:00 03/28/18 18:00 Temperature Pulse Rate 86 86 84 Respiratory Rate Blood Pressure Pulse Oximetry 03/28/18 19:00 03/28/18 20:00 03/28/18 21:00 Temperature 98.8 F Pulse Rate 80 84 84 Respiratory Rate 22 Blood Pressure 143/84 H Pulse Oximetry 96 96 03/28/18 22:00 03/28/18 23:00 03/29/18 00:00 Temperature 98.8 F Pulse Rate 78 85 68 Respiratory Rate 22 Blood Pressure 106/63 Pulse Oximetry 94 L 03/29/18 01:00 03/29/18 02:00 03/29/18 03:00 Temperature 97.9 F Pulse Rate 72 70 81 Respiratory Rate 22 Blood Pressure 110/62 Pulse Oximetry 93 L 03/29/18 04:00 03/29/18 05:00 03/29/18 06:00 Temperature Pulse Rate 70 72 78 Respiratory Rate Blood Pressure Pulse Oximetry 03/29/18 08:17 Temperature 98.5 F Pulse Rate 85 Respiratory Rate 16 Blood Pressure 139/94 H Pulse Oximetry 97 Intake & Output 03/28/18 03/29/18 03/29/18 18:59 06:59 18:59 Intake Total 960 / 960 480 / 480 Output Total 900 / 900 400 / 400 Balance 60 / 60 80 / 80 Weight 92.5 kg Intake: Oral 960 / 960 480 / 480 Output: Urine 900 / 900 400 / 400 Other: Date of Last Bowel Movement 03/28/18 03/29/18 # Bowel Movements 1 Narrative: GENERAL: Awake alert and oriented 3 talkative and cooperative appears to be in no acute distress SKIN: Warm and dry. HEAD: Atraumatic. Normocephalic. EYES: Pupils equal and round. No scleral icterus. No injection or drainage. EOMI ENT: No nasal bleeding or discharge. Mucous membranes pink and moist. Tongue is midline NECK: Trachea midline. No JVD. Supple CARDIOVASCULAR: Regular rate and rhythm. S1-S2 no S3 or S4 some tachycardia RESPIRATORY: No accessory muscle use. Clear to auscultation. Breath sounds equal bilaterally. GASTROINTESTINAL: Abdomen soft, non-tender, nondistended. Hepatic and splenic margins not palpable. MUSCULOSKELETAL: Extremities without clubbing, cyanosis, or edema. No obvious deformities. Right groin is stable NEUROLOGICAL: Awake and alert. No obvious cranial nerve deficits. Motor grossly within normal limits. Five out of 5 muscle strength in the arms and legs. Normal speech. PSYCHIATRIC: Appropriate mood and affect; insight and judgment normal. Results - Labs CBC & Chem 7: 03/29/18 05:43 03/29/18 05:43 Laboratory Results - last 24 hr 03/28/18 03/28/18 03/29/18 13:22 17:30 05:43 WBC RBC Hgb Hct MCV MCH MCHC RDW Plt Count MPV Neut % (Auto) Lymph % (Auto) [place] % (Auto) Eos % (Auto) Baso % (Auto) Neut # (Auto) Lymph # (Auto) [place] # (Auto) Eos # (Auto) Baso # (Auto) WBC Differential Differential Comment Sodium 141 Potassium 4.0 Chloride 105 Carbon Dioxide 26.4 Anion Gap 10 BUN 20 H Creatinine 1.15 Estimated GFR 67 L Random Glucose 90 Calcium 8.1 L Phosphorus 1.3 L Magnesium 2.1 Total Bilirubin 1.5 H AST 206 H ALT 80 H Alkaline Phosphatase 74 Total Creatine Kinase 1078 H 3680 H CK-MB (CK-2) 35.6 H 11.1 H CK-MB (CK-2) % 3.3 0.3 Troponin I 39.60 H* Greater than 40.00 H* 34.20 H* Total Protein 6.6 Albumin 3.3 L 03/29/18 05:43 WBC 13.0 H RBC 4.93 Hgb 14.7 Hct 43.1 MCV 87.5 MCH 29.8 MCHC 34.1 RDW 13.8 Plt Count 197 MPV 8.8 Neut % (Auto) 69.1 Lymph % (Auto) 20.3 [place]pine % (Auto) 9.1 H Eos % (Auto) 0.9 Baso % (Auto) 0.6 Neut # (Auto) 9.0 H Lymph # (Auto) 2.6 [place]pine # (Auto) 1.2 H Eos # (Auto) 0.1 Baso # (Auto) 0.1 WBC Differential . Differential Comment Auto diff final Sodium Potassium Chloride Carbon Dioxide Anion Gap BUN Creatinine Estimated GFR Random Glucose Calcium Phosphorus Magnesium Total Bilirubin AST ALT Alkaline Phosphatase Total Creatine Kinase CK-MB (CK-2) CK-MB (CK-2) % Troponin I Total Protein Albumin - Imaging Chest X-Ray 03/27/18 02:23 CONCLUSION: No acute cardiopulmonary abnormality is identified. - Procedures 03/27/2018 PROCEDURES PERFORMED: Left heart catheterization, left ventriculography, coronary angiography, direct percutaneous coronary intervention with bare-metal stent of the proximal right coronary artery. INDICATIONS FOR PROCEDURE: STEMI, coronary artery disease, history of atrial fibrillation. PROCEDURE IN DETAIL: The patient was brought to the cardiac catheterization laboratory, prepped and draped in the usual sterile fashion and 10 mL of 1% lidocaine was used to locally anesthetize the right common femoral artery. A 6-Albanian sheath was placed in right common femoral artery. A 6-[place] JR4 guide was placed at the right coronary artery os. Imaging revealed an occluded proximal right coronary artery. The patient's initial ACT was 198 and additional 60 units/kg of heparin was given at the initiation of the procedure. ACT was 273. A 0.014 [place] guidewire was used to cross the occluded proximal right coronary artery, which resulted in reperfusion with a 95% stenosis residual of about 12 mm of length in the proximal right coronary artery. This was directly stented with a 3.5 x 15 integrity stent with one inflation, 11 atmospheres for 20 seconds. Stenosis went from 100% to 0% with PAPITO-3 flow. The right PDA had a 90% proximal stenosis. Right REMEDIOS had a 70% proximal stenosis. The vessel was of 3.5 vessel throughout its entire length. Also in the right coronary artery there was a 20% stenosis. The left main coronary artery has no significant disease angiographically. The LAD had mild 20% proximal stenosis. It is a non-transapical vessel. There is a 40%-50% stenosis after the first diagonal artery. The first diagonal artery is a medium-sized vessel, to at least 2.5 mm in diameter, with a mid to distal 60%-70% stenosis. The left circumflex vessel has no focal stenosis; however, it tapers from an approximately 2.75 mm vessel in the proximal segment down to about a 1.75-2 mm vessel within a distance of approximately 15 mm. The first obtuse marginal vessel was a 0.5 mm vessel. No significant disease angiographically. Second obtuse marginal vessel is a small vessel as well, 1 mm in diameter. No significant disease angiographically. The remainder of the AV groove of the left circumflex vessels supplies 2 small 0.25 mm posterolateral arteries, which have no significant disease angiographically. I then performed a left ventriculogram. LV pressures were 115/20-22. Ejection fraction was 55%. The posterior wall was at least moderately hypokinetic, but did have wall motion suggesting viability. Mid inferior wall is at least mild to moderately hypokinetic. Note, the patient had residual chest pain. We gave 200 mcg of intracoronary Nipride in 100 mcg increments. Chest pain at the end of procedure went from 10/10 to 2/10. CONCLUSION: 1. ST elevation myocardial infarction, culprit occluded proximal right coronary artery as detailed above. 2. Successful direct percutaneous coronary intervention with bare-metal stent of the proximal right coronary artery from 100% with PAPITO 0 flow to 0% with PAPITO 3 flow. 3. A 90%-95% proximal mid right PDA lesion. 4. A 70% proximal mid right REMEDIOS lesion as detailed above. 5. A 60-70% mid diagonal vessel stenosis as detailed above. Otherwise, moderate left anterior descending artery and circumflex disease as detailed above. 6. Preserved left ventricular systolic, ejection fraction of 55% with at least moderate hypokinesis of the posterior wall and mild to moderate hypokinesis of the mid inferior wall. 7. Recommend Effient 60 mg p.o. load then 10 mg daily for 12-15 months, aspirin 162 mg daily. The patient was bradycardic prior to the procedure. He did respond well to 0.6 of atropine, but will hold beta kyle over the next 24 hours to determine the trend in heart rate. FLACO inhibitor will be held for the first 24 hours given relatively low systolic blood pressure. Post procedure, it was around 100. We will treat lipids per NCBI guidelines. Nic Dejesus MD Assessment and Plan - Plan ST elevation GA status post bare metal stent to the right coronary artery by Dr. Dejesus earlier today Continue on Effient continue on aspirin continue on beta-blockade -Noted to have multivessel disease on cardiac catheterization please see report TROPONINS STILL NOTED TO BE ELEVATED Tachycardia we will initiate beta-blockade with metoprolol 25 mg p.o. twice daily Hypertension by history we will see how this is. Had previously been on Norvasc 5 mg p.o. daily Hyperlipidemia will check lipids and start on Lipitor 40 mg p.o. nightly Family history of coronary artery disease History of tonsillectomy and appendectomy Nausea will continue on 8 mg of Zofran every 4 hours as needed nausea vomiting IV GI prophylaxis with Pepcid HYPOTHYROIDISM START SYNTHROID 50MCG DAILY FOR TSH OF 12 LEUKOCYTOSIS MONITOR AM LABS RENAL INSUFFICIENCY - MONITOR LABS- WATCH BLOOD PRESSURES ELEVATED LFTS AND CK-MB AND TROPONIS DVT prophylaxis with the Effient and aspirin DC TO HOME TODAY IF OK WITH CARDIOLOGY Code Status: FULL CODE Discussed Condition With: RN AND PT AND CARDIOLOGY Discharge Planning: DC TO HOME TODAY
--- NOTE | 2018-03-29 09:48 | P.DS ---
Date of admission: 03/27/18 02:48 Primary care physician: Pro Canas DO Attending physician on discharge: Anuj Cason Anticipated date of discharge: 03/29/18 Brief History from admission: PATIENT IS A 52 YEAR OLD GENTLEMAN WHO PRESENTED TO THE EMERGENCY DEPARTMENT HERE AT [facility] FOR CHEST PAIN THAT OCCURRED DURING SEXUAL RELATIONSHIPS. PATIENT WAS NOTED TO HAVE AN STEMI AND WAS TAKE EMERGENTLY TO THE [facility] HISTOLOGIC TECHNICIAN BY DR DEJESUS AND UNDERWENT STENT PLACEMENT TO RIGHT CORONARY ARTERY HAS BEEN PLACED ON EFFIENT AND ASPIRIN 325MG WILL ADD STATIN LIPITOR 40MG PO QHS METOPROLOL 25MG PO BID AT HOME NORMALLY TAKES ASA 81MG AND NORVASC 5MG DAILY POSITIVE FAMILY HX OF HEART DISEASE AND DIABETES Patient update on day of discharge: PATIENT IS A 52 YEAR OLD GENTLEMAN WHO PRESENTED TO THE EMERGENCY DEPARTMENT HERE AT [facility] FOR CHEST PAIN THAT OCCURRED DURING SEXUAL RELATIONSHIPS. PATIENT WAS NOTED TO HAVE AN STEMI AND WAS TAKE EMERGENTLY TO THE [facility] HISTOLOGIC TECHNICIAN BY DR DEJESUS AND UNDERWENT STENT PLACEMENT TO RIGHT CORONARY ARTERY HAS BEEN PLACED ON EFFIENT AND ASPIRIN 325MG WILL ADD STATIN LIPITOR 40MG PO QHS METOPROLOL 25MG PO BID AT HOME NORMALLY TAKES ASA 81MG AND NORVASC 5MG DAILY POSITIVE FAMILY HX OF HEART DISEASE AND DIABETES 9-5 [facility] HAVE NOT TRENDED DOWN DENIES ANY CHEST PAIN FOUND TO BE HYPOTHYROID WILL START ON SYNTHROID 50MCG PO DAILY DW RN AND PT AM LABS DENIES ANY SOB 9-6 wants to go home NO CHEST PAIN DW RN AND PT DC TO HOME [facility] TRENDING DOWN DW CARDIOLOGY DS: Diagnosis - Discharge Diagnosis (1) Hypothyroidism Status: Chronic (2) CAD (coronary artery disease) Status: Acute (3) CRI (chronic renal insufficiency) Status: Chronic (4) CRI (chronic renal insufficiency) Status: Acute (5) ST elevation (STEMI) myocardial infarction Status: Acute DS: Medications - Discharge Medications Prescriptions: aspirin 162 mg PO DAILY #30 tab atorvastatin 40 mg PO HS #40 tab levothyroxine [Synthroid] 50 mcg PO DAILY@0600 #30 tab metoprolol tartrate 25 mg PO Q12HR #60 tab prasugrel [Effient] 10 mg PO DAILY #30 tab DS: Summary Hospital Course: PATIENT IS A 52 YEAR OLD GENTLEMAN WHO PRESENTED TO THE EMERGENCY DEPARTMENT HERE AT [facility] FOR CHEST PAIN THAT OCCURRED DURING SEXUAL RELATIONSHIPS. PATIENT WAS NOTED TO HAVE AN STEMI AND WAS TAKE EMERGENTLY TO THE [facility] HISTOLOGIC TECHNICIAN BY DR DEJESUS AND UNDERWENT STENT PLACEMENT TO RIGHT CORONARY ARTERY HAS BEEN PLACED ON EFFIENT AND ASPIRIN 325MG WILL ADD STATIN LIPITOR 40MG PO QHS METOPROLOL 25MG PO BID AT HOME NORMALLY TAKES ASA 81MG AND NORVASC 5MG DAILY POSITIVE FAMILY HX OF HEART DISEASE AND DIABETES 9-5 [place] HAVE NOT TRENDED DOWN DENIES ANY CHEST PAIN FOUND TO BE HYPOTHYROID WILL START ON SYNTHROID 50MCG PO DAILY DW RN AND PT AM LABS DENIES ANY SOB 9-6 wants to go home NO CHEST PAIN DW RN AND PT DC TO HOME [facility] TRENDING DOWN DW CARDIOLOGY - Time Spent with Patient Total time spent providing and/or coordinating discharge services: Greater than 30 minutes - Quality: VTE Deep Vein Thrombosis/Pulmonary Embolism Present on Admission: No Exam Vital signs: Vital Signs 03/28/18 10:00 03/28/18 11:00 03/28/18 12:00 Temperature 98.7 F Pulse Rate 78 82 78 Respiratory Rate 18 Blood Pressure Pulse Oximetry 95 03/28/18 13:00 03/28/18 14:00 03/28/18 15:00 Temperature 98.7 F Pulse Rate 78 74 86 Respiratory Rate 18 Blood Pressure 117/79 Pulse Oximetry 98 03/28/18 16:00 03/28/18 17:00 03/28/18 18:00 Temperature Pulse Rate 86 86 84 Respiratory Rate Blood Pressure Pulse Oximetry 03/28/18 19:00 03/28/18 20:00 03/28/18 21:00 Temperature 98.8 F Pulse Rate 80 84 84 Respiratory Rate 22 Blood Pressure 143/84 H Pulse Oximetry 96 96 03/28/18 22:00 03/28/18 23:00 03/29/18 00:00 Temperature 98.8 F Pulse Rate 78 85 68 Respiratory Rate 22 Blood Pressure 106/63 Pulse Oximetry 94 L 03/29/18 01:00 03/29/18 02:00 03/29/18 03:00 Temperature 97.9 F Pulse Rate 72 70 81 Respiratory Rate 22 Blood Pressure 110/62 Pulse Oximetry 93 L 03/29/18 04:00 03/29/18 05:00 03/29/18 06:00 Temperature Pulse Rate 70 72 78 Respiratory Rate Blood Pressure Pulse Oximetry 03/29/18 08:17 Temperature 98.5 F Pulse Rate 85 Respiratory Rate 16 Blood Pressure 139/94 H Pulse Oximetry 97 Intake & Output 03/28/18 03/29/18 03/29/18 18:59 06:59 18:59 Intake Total 960 / 960 480 / 480 Output Total 900 / 900 400 / 400 Balance 60 / 60 80 / 80 Weight 92.5 kg Intake: Oral 960 / 960 480 / 480 Output: Urine 900 / 900 400 / 400 Other: Date of Last Bowel Movement 03/28/18 03/29/18 # Bowel Movements 1 Narrative: GENERAL: Awake alert and oriented 3 talkative and cooperative appears to be in no acute distress SKIN: Warm and dry. HEAD: Atraumatic. Normocephalic. EYES: Pupils equal and round. No scleral icterus. No injection or drainage. EOMI ENT: No nasal bleeding or discharge. Mucous membranes pink and moist. Tongue is midline NECK: Trachea midline. No JVD. Supple CARDIOVASCULAR: Regular rate and rhythm. S1-S2 no S3 or S4 some tachycardia RESPIRATORY: No accessory muscle use. Clear to auscultation. Breath sounds equal bilaterally. GASTROINTESTINAL: Abdomen soft, non-tender, nondistended. Hepatic and splenic margins not palpable. MUSCULOSKELETAL: Extremities without clubbing, cyanosis, or edema. No obvious deformities. Right groin is stable NEUROLOGICAL: Awake and alert. No obvious cranial nerve deficits. Motor grossly within normal limits. Five out of 5 muscle strength in the arms and legs. Normal speech. PSYCHIATRIC: Appropriate mood and affect; insight and judgment normal. Results Procedures completed during hospitalization: 03/27/2018 PROCEDURES PERFORMED: Left heart catheterization, left ventriculography, coronary angiography, direct percutaneous coronary intervention with bare-metal stent of the proximal right coronary artery. INDICATIONS FOR PROCEDURE: STEMI, coronary artery disease, history of atrial fibrillation. PROCEDURE IN DETAIL: The patient was brought to the cardiac catheterization laboratory, prepped and draped in the usual sterile fashion and 10 mL of 1% lidocaine was used to locally anesthetize the right common femoral artery. A 6-Australian sheath was placed in right common femoral artery. A 6-Australian JR4 guide was placed at the right coronary artery os. Imaging revealed an occluded proximal right coronary artery. The patient's initial ACT was 198 and additional 60 units/kg of heparin was given at the initiation of the procedure. ACT was 273. A 0.014 [place] guidewire was used to cross the occluded proximal right coronary artery, which resulted in reperfusion with a 95% stenosis residual of about 12 mm of length in the proximal right coronary artery. This was directly stented with a 3.5 x 15 integrity stent with one inflation, 11 atmospheres for 20 seconds. Stenosis went from 100% to 0% with PAPITO-3 flow. The right PDA had a 90% proximal stenosis. Right REMEDIOS had a 70% proximal stenosis. The vessel was of 3.5 vessel throughout its entire length. Also in the right coronary artery there was a 20% stenosis. The left main coronary artery has no significant disease angiographically. The LAD had mild 20% proximal stenosis. It is a non-transapical vessel. There is a 40%-50% stenosis after the first diagonal artery. The first diagonal artery is a medium-sized vessel, to at least 2.5 mm in diameter, with a mid to distal 60%-70% stenosis. The left circumflex vessel has no focal stenosis; however, it tapers from an approximately 2.75 mm vessel in the proximal segment down to about a 1.75-2 mm vessel within a distance of approximately 15 mm. The first obtuse marginal vessel was a 0.5 mm vessel. No significant disease angiographically. Second obtuse marginal vessel is a small vessel as well, 1 mm in diameter. No significant disease angiographically. The remainder of the AV groove of the left circumflex vessels supplies 2 small 0.25 mm posterolateral arteries, which have no significant disease angiographically. I then performed a left ventriculogram. LV pressures were 115/20-22. Ejection fraction was 55%. The posterior wall was at least moderately hypokinetic, but did have wall motion suggesting viability. Mid inferior wall is at least mild to moderately hypokinetic. Note, the patient had residual chest pain. We gave 200 mcg of intracoronary Nipride in 100 mcg increments. Chest pain at the end of procedure went from 10/10 to 2/10. CONCLUSION: 1. ST elevation myocardial infarction, culprit occluded proximal right coronary artery as detailed above. 2. Successful direct percutaneous coronary intervention with bare-metal stent of the proximal right coronary artery from 100% with PAPITO 0 flow to 0% with PAPITO 3 flow. 3. A 90%-95% proximal mid right PDA lesion. 4. A 70% proximal mid right REMEDIOS lesion as detailed above. 5. A 60-70% mid diagonal vessel stenosis as detailed above. Otherwise, moderate left anterior descending artery and circumflex disease as detailed above. 6. Preserved left ventricular systolic, ejection fraction of 55% with at least moderate hypokinesis of the posterior wall and mild to moderate hypokinesis of the mid inferior wall. 7. Recommend Effient 60 mg p.o. load then 10 mg daily for 12-15 months, aspirin 162 mg daily. The patient was bradycardic prior to the procedure. He did respond well to 0.6 of atropine, but will hold beta kyle over the next 24 hours to determine the trend in heart rate. FLACO inhibitor will be held for the first 24 hours given relatively low systolic blood pressure. Post procedure, it was around 100. We will treat lipids per NCBI guidelines. Nic Dejesus MD Completed studies during hospitalization: Laboratory Results WBC 13.0 th/mm3 (4.0-11.0) H 03/29/18 05:43 RBC 4.93 mil/mm3 (4.50-5.90) 03/29/18 05:43 Hgb 14.7 gm/dL (13.0-17.0) 03/29/18 05:43 POC Hgb (Calc) 16.7 g/dL (13.0-17.0) 03/27/18 02:25 Hct 43.1 % (39.0-51.0) 03/29/18 05:43 POC Hct 49.0 % (39-51.0) 03/27/18 02:25 MCV 87.5 fL (80.0-100.0) 03/29/18 05:43 MCH 29.8 pg (27.0-34.0) 03/29/18 05:43 MCHC 34.1 % (32.0-36.0) 03/29/18 05:43 RDW 13.8 % (11.6-17.2) 03/29/18 05:43 Plt Count 197 th/mm3 (150-450) 03/29/18 05:43 MPV 8.8 fL (7.0-11.0) 03/29/18 05:43 Prelim Diff (Auto) Slide review pending 03/27/18 02:25 Neut % (Auto) 69.1 % (16.0-70.0) 03/29/18 05:43 Lymph % (Auto) 20.3 % (9.0-44.0) 03/29/18 05:43 [place] % (Auto) 9.1 % (0.0-8.0) H 03/29/18 05:43 Eos % (Auto) 0.9 % (0.0-4.0) 03/29/18 05:43 Baso % (Auto) 0.6 % (0.0-2.0) 03/29/18 05:43 Neut # (Auto) 9.0 th/mm3 (1.8-7.7) H 03/29/18 05:43 Lymph # (Auto) 2.6 th/mm3 (1.0-4.8) 03/29/18 05:43 [place] # (Auto) 1.2 th/mm3 (0.0-0.9) H 03/29/18 05:43 Eos # (Auto) 0.1 th/mm3 (0.0-0.4) 03/29/18 05:43 Baso # (Auto) 0.1 th/mm3 (0.0-0.2) 03/29/18 05:43 WBC Differential . 03/29/18 05:43 Seg Neuts % (Manual) 73 % (16-70) H 03/27/18 02:25 Band Neuts % (Manual) 2 % (0-6) 03/27/18 02:25 Lymphocytes % (Manual) 16 % (9-44) 03/27/18 02:25 Monocytes % (Manual) 6 % (0-8) 03/27/18 02:25 Basophils % (Manual) 1 % (0-2) 03/27/18 02:25 Myelocytes % (Man) 2 % (0-0) H 03/27/18 02:25 Abs Neuts (Manual) 15.7 th/mm3 (1.8-7.7) H 03/27/18 02:25 Differential Comment Auto diff final 03/29/18 05:43 Platelet Estimate Normal (Normal) 03/27/18 02:25 Platelet Morphology Normal (Normal) 03/27/18 02:25 RBC Morphology Normal (Normal) 03/27/18 02:25 PT 11.1 sec (9.8-11.6) 03/28/18 05:01 INR 1.1 Ratio 03/28/18 05:01 APTT 21.3 sec (24.3-30.1) L 03/27/18 02:25 POC Sodium 141 mmol/L (137-144) 03/27/18 02:25 Sodium 141 meq/L (136-145) 03/29/18 05:43 POC Potassium 3.2 mmol/L (3.6-5.0) L 03/27/18 02:25 Potassium 4.0 meq/L (3.5-5.1) 03/29/18 05:43 POC Chloride 103 mmol/L (102-111) 03/27/18 02:25 Chloride 105 meq/L (98-107) 03/29/18 05:43 Carbon Dioxide 26.4 meq/L (21.0-32.0) 03/29/18 05:43 Anion Gap 10 meq/L (5-15) 03/29/18 05:43 POC BUN 24 mg/dL (5-21) H 03/27/18 02:25 BUN 20 mg/dL (7-18) H 03/29/18 05:43 Creatinine 1.15 mg/dL (0.60-1.30) 03/29/18 05:43 POC Creatinine 1.9 mg/dL (0.6-1.3) H 03/27/18 02:25 Estimated GFR 67 mL/min (>89) L 03/29/18 05:43 POC Glucose 256 mg/dL (68-110) H 03/27/18 02:25 Random Glucose 90 mg/dL (74-106) 03/29/18 05:43 Hemoglobin A1c 5.4 % (4.3-6.0) 03/27/18 02:25 Calcium 8.1 mg/dL (8.5-10.1) L 03/29/18 05:43 Phosphorus 1.3 mg/dL (2.5-4.9) L 03/29/18 05:43 Magnesium 2.1 mg/dL (1.5-2.5) 03/29/18 05:43 Total Bilirubin 1.5 mg/dL (0.2-1.0) H 03/29/18 05:43 AST 206 U/L (15-37) H 03/29/18 05:43 ALT 80 U/L (12-78) H 03/29/18 05:43 Alkaline Phosphatase 74 U/L (45-117) 03/29/18 05:43 Total Creatine Kinase 3680 U/L (39-308) H 03/29/18 05:43 CK-MB (CK-2) 11.1 ng/mL (0.5-3.6) H 03/29/18 05:43 CK-MB (CK-2) % 0.3 % (0.0-4.0) 03/29/18 05:43 Troponin I 34.20 ng/mL (0.02-0.05) H* 03/29/18 05:43 B-Natriuretic Peptide 52 pg/mL (0-100) 03/27/18 02:25 Total Protein 6.6 g/dL (6.4-8.2) 03/29/18 05:43 Albumin 3.3 g/dL (3.4-5.0) L 03/29/18 05:43 Triglycerides 204 mg/dL (42-150) H 03/28/18 05:01 Cholesterol 199 mg/dL (120-200) 03/28/18 05:01 LDL Cholesterol, Calc 119 mg/dL (0-99) H 03/28/18 05:01 HDL Cholesterol 39.4 mg/dL (40.0-60.0) L 03/28/18 05:01 Cholesterol/HDL Ratio 5.05 Ratio 03/28/18 05:01 TSH 12.000 uIU/mL (0.358-3.740) H 03/27/18 02:25 Free T4 1.07 ng/dL (0.76-1.46) 03/27/18 02:25 Impressions Chest X-Ray 03/27/18 02:23 CONCLUSION: No acute cardiopulmonary abnormality is identified. Labs on day of discharge: Labs from last 24 hours 03/29/18 03/29/18 03/28/18 05:43 05:43 17:30 WBC 13.0 H RBC 4.93 Hgb 14.7 Hct 43.1 MCV 87.5 MCH 29.8 MCHC 34.1 RDW 13.8 Plt Count 197 MPV 8.8 Neut % (Auto) 69.1 Lymph % (Auto) 20.3 [place] % (Auto) 9.1 H Eos % (Auto) 0.9 Baso % (Auto) 0.6 Neut # (Auto) 9.0 H Lymph # (Auto) 2.6 [place] # (Auto) 1.2 H Eos # (Auto) 0.1 Baso # (Auto) 0.1 WBC Differential . Differential Comment Auto diff final Sodium 141 Potassium 4.0 Chloride 105 Carbon Dioxide 26.4 Anion Gap 10 BUN 20 H Creatinine 1.15 Estimated GFR 67 L Random Glucose 90 Calcium 8.1 L Phosphorus 1.3 L Magnesium 2.1 Total Bilirubin 1.5 H AST 206 H ALT 80 H Alkaline Phosphatase 74 Total Creatine Kinase 3680 H CK-MB (CK-2) 11.1 H CK-MB (CK-2) % 0.3 Troponin I 34.20 H* Greater than 40.00 H* Total Protein 6.6 Albumin 3.3 L 03/28/18 13:22 WBC RBC Hgb Hct MCV MCH MCHC RDW Plt Count MPV Neut % (Auto) Lymph % (Auto) [place] % (Auto) Eos % (Auto) Baso % (Auto) Neut # (Auto) Lymph # (Auto) [place] # (Auto) Eos # (Auto) Baso # (Auto) WBC Differential Differential Comment Sodium Potassium Chloride Carbon Dioxide Anion Gap BUN Creatinine Estimated GFR Random Glucose Calcium Phosphorus Magnesium Total Bilirubin AST ALT Alkaline Phosphatase Total Creatine Kinase 1078 H CK-MB (CK-2) 35.6 H CK-MB (CK-2) % 3.3 Troponin I 39.60 H* Total Protein Albumin - Impressions ITS Impressions Chest X-Ray 03/27/18 02:23 CONCLUSION: No acute cardiopulmonary abnormality is identified. Discharge Plan - Discharge Disposition Patient Disposition: 01 Discharge Home - Discharge Condition Condition: Good - Discharge Order Discharge Orders: Discharge Order (Routine); Ordered 03/29/18 Ordered By: Anuj Cason - Discharge Details Anticipated Discharge Date: 03/29/18 Discharge Comment: DC TO HOME TODAY - Physicians Team Primary Care Provider: Pro Canas Attending Provider: Anuj Cason
[2018-03-29 11:26] VITALS: BP 149/93; TEMP 97.8; O2SAT 100
--- NOTE | 2018-03-29 12:40 | P.PNCA ---
Subjective Interval history: alert in nad, assymptomatic Physical Exam Vital signs: Vital Signs 03/28/18 13:00 03/28/18 14:00 03/28/18 15:00 Temperature 98.7 F Pulse Rate 78 74 86 Respiratory Rate 18 Blood Pressure 117/79 Pulse Oximetry 98 03/28/18 16:00 03/28/18 17:00 03/28/18 18:00 Temperature Pulse Rate 86 86 84 Respiratory Rate Blood Pressure Pulse Oximetry 03/28/18 19:00 03/28/18 20:00 03/28/18 21:00 Temperature 98.8 F Pulse Rate 80 84 84 Respiratory Rate 22 Blood Pressure 143/84 H Pulse Oximetry 96 96 03/28/18 22:00 03/28/18 23:00 03/29/18 00:00 Temperature 98.8 F Pulse Rate 78 85 68 Respiratory Rate 22 Blood Pressure 106/63 Pulse Oximetry 94 L 03/29/18 01:00 03/29/18 02:00 03/29/18 03:00 Temperature 97.9 F Pulse Rate 72 70 81 Respiratory Rate 22 Blood Pressure 110/62 Pulse Oximetry 93 L 03/29/18 04:00 03/29/18 05:00 03/29/18 06:00 Temperature Pulse Rate 70 72 78 Respiratory Rate Blood Pressure Pulse Oximetry 03/29/18 07:00 03/29/18 08:00 03/29/18 08:17 Temperature 98.5 F Pulse Rate 74 74 85 Respiratory Rate 16 Blood Pressure 139/94 H Pulse Oximetry 97 03/29/18 09:00 03/29/18 10:00 03/29/18 10:39 Temperature Pulse Rate 92 H 76 Respiratory Rate Blood Pressure Pulse Oximetry 94 L 03/29/18 11:23 Temperature 97.8 F Pulse Rate 79 Respiratory Rate 16 Blood Pressure 149/93 H Pulse Oximetry 100 Intake & Output 03/28/18 03/29/18 03/29/18 18:59 06:59 18:59 Intake Total 960 / 960 480 / 480 Output Total 900 / 900 400 / 400 Balance 60 / 60 80 / 80 Weight 92.5 kg Intake: Oral 960 / 960 480 / 480 Output: Urine 900 / 900 400 / 400 Other: Date of Last Bowel Movement 03/28/18 03/29/18 # Bowel Movements 1 Assessment and Plan - Assessment (1) CAD (coronary artery disease) Code(s): I25.10 - Atherosclerotic heart disease of elem coronary artery without angina pectoris Status: Acute (2) CRI (chronic renal insufficiency) Code(s): N18.9 - Chronic kidney disease, unspecified Status: Chronic (3) CRI (chronic renal insufficiency) Code(s): N18.9 - Chronic kidney disease, unspecified Status: Acute (4) ST elevation (STEMI) myocardial infarction Code(s): I21.3 - ST elevation (STEMI) myocardial infarction of unspecified site Status: Acute - Plan 1.) CAD - pod # 2 primary pci prox rca with bms, moderate to severe 3 vessel cad, continue aspirin, effient, lopressor, lipitor, f/u with me next week; patient strongly advised to be compliant with aspirin and effient or risk life threatening stent thrombosis (4) ST elevation (STEMI) myocardial infarction Qualifiers: Involved coronary artery: right coronary artery Qualified Code(s): I21.11 - ST elevation (STEMI) myocardial infarction involving right coronary artery
[2018-03-29 13:02] VITALS: PULSE 72
== END 2018-03-29 13:11 | disposition home or self-care (01) ==
LOC: NEPC 02:13 → NEDA 02:48 → HCPC 04:12
PROVIDERS: ADMIT Hospitalist; ATTEND Hospitalist